=== PATIENT | male | born 1980 | race Caucasian/White ===

== ENCOUNTER 2017-05-21 17:37 | Inpatient (IN) | payer MEDICARE, OTHER ==
[~2017-05-21] VITALS: Ht 177.8 cm; Wt 90.0 kg
[~2017-05-21 17:37] MED LIST: ARIP10IN IM; Benztropine PO; CHOL1000 PO; CLON1 PO; LAMO25 PO
[2017-05-21 18:09] VITALS: BP 137/91; PULSE 106; RESP 17; TEMP 98.2; O2SAT 97
--- NOTE | 2017-05-21 18:45 | PD ---
HPI Chief Complaint: Medical Clearance Time Seen by Provider: 18:00 Travel History International Travel<30 days: No Contact w/Intl Traveler<30days: No Traveled to known affect area: No History of Present Illness HPI 36-year-old presents for evaluation of EXPARTE. Patient was brought here for evaluation of delusions and possible psychosis. Patient himself denies any of this. Patient tells me that he told the place where he states that he wanted to go to walk to work is from. Per patient he is from [place] different [place] he [place] not want to get there. Per patient he is not suicidal or homicidal. Per patient is compliant with his medication and takes Lamictal and "Jori injection". Per patient he got his shot yesterday. Per patient he has no other complaints. He denies being psychotic and denies any delusions or hallucinations. No urinary or bowel movement issues. Has no allergies to medications. No chest pain or shortness of breath. No medical issues per patient. Patient denies any suicidal homicidal ideation. No other medical issues. Patient does appear to be somewhat guarded. Per EXPARTE he is acutely psychotic and delusional. PFSH Past Medical History Anxiety: Yes Depression: Yes Cancer: No Cardiovascular Problems: No Endocrine: No Genitourinary: No Headaches: No Immune Disorder: No Musculoskeletal: No Neurologic: No Psychiatric: Yes (Hx of treatment for Schizoaffective Disorder) Reproductive: No Respiratory: No Social History Alcohol Use: Yes Tobacco Use: No Substance Use: No (Denies but was positive for cannoboids) Allergies-Medications (Allergen,Severity, Reaction): Coded Allergies: No Known Allergies (Unverified , 02/10/17) Reported Meds & Prescriptions Reported Meds & Active Scripts Active Abilify Maintena Dual Chamber Inj (Aripiprazole) 400 Mg Inj 400 Mg IM Q28D This dose of Abilify Maintena is due on 03/25/2017. Gnp Vitamin D3 Extra Stre (Cholecalciferol) 1,000 Unit Tab 1,000 Units PO DAILY 15 Days [Benztropine] 1 MG Tab 1 Mg PO BID 15 Days Lamictal (Lamotrigine) 25 Mg Tab 50 Mg PO BID 15 Days Klonopin (Clonazepam) 1 Mg Tab 0.5 Mg PO BID 15 Days Review of Systems Except as stated in HPI: all other systems reviewed are Neg Physical Exam Narrative GENERAL: SKIN: Warm and dry. HEAD: Atraumatic. Normocephalic. EYES: Pupils equal and round. No scleral icterus. No injection or drainage. ENT: No nasal bleeding or discharge. Mucous membranes pink and moist. NECK: Trachea midline. No JVD. CARDIOVASCULAR: Regular rate and rhythm. RESPIRATORY: No accessory muscle use. Clear to auscultation. Breath sounds equal bilaterally. GASTROINTESTINAL: Abdomen soft, non-tender, nondistended. Hepatic and splenic margins not palpable. MUSCULOSKELETAL: Extremities without clubbing, cyanosis, or edema. No obvious deformities. NEUROLOGICAL: Awake and alert. No obvious cranial nerve deficits. Motor grossly within normal limits. Five out of 5 muscle strength in the arms and legs. Normal speech. PSYCHIATRIC: Appropriate mood and affect; insight and judgment normal. Data Data Last Documented VS Vital Signs Date Time Temp Pulse Resp B/P (MAP) Pulse Ox O2 Delivery O2 Flow Rate FiO2 05/21/17 18:09 98.2 106 17 137/91 (106) 97 Orders Orders Complete Blood Count With Diff (05/21/17 18:00) Comprehensive Metabolic Panel (05/21/17 18:00) Thyroid Stimulating Hormone (05/21/17 18:00) Psych Screen (05/21/17 18:00) Drug Screen, Random Urine (05/21/17 18:00) Alcohol (Ethanol) (05/21/17 18:00) Salicylates (Aspirin) (05/21/17 18:00) Tylenol (Acetaminophen) (05/21/17 18:00) Lamictal (Lamotrigine) (05/21/17 18:33) [facility] Medical Decision Making Medical Screen Exam Complete: Yes Emergency Medical Condition: Yes Medical Record Reviewed: Yes Differential Diagnosis Depression versus suicidal ideation versus anxiety versus adjustment disorder versus mood disorder versus bipolar disorder versus schizophrenia versus paranoid disorder versus psychosis versus substance abuse versus alcohol abuse versus alcohol induced psychosis versus homicidality addition versus cutting versus personality disorder Narrative Course 36-year-old male that presents to the ED for evaluation of side. Patient relates symptoms consistent with psychiatric illness. No significant medical distress. Labs were drawn. Patient was medically cleared. Okay To be seen by psych. Mental health screening was discussed with the patient. Diagnosis Primary Impression: Schizophrenia, acute Gm Acosta May 21, 2017 18:45
[2017-05-21 19:41] LABS: BASOPHIL # 0.1 TH/MM3 (0-0.2); BASOPHIL % 0.7 % (0.0-2.0); EOSINOPHIL # 0.2 TH/MM3 (0-0.4); EOSINOPHIL % 1.6 % (0.0-4.0); HEMATOCRIT 47.8 % (39.0-51.0); HEMOGLOBIN 16.5 GM/DL (13.0-17.0); LYMPH % 26.1 % (9.0-44.0); LYMPHOCYTE # 2.8 TH/MM3 (1.0-4.8); MEAN CELL VOLUME 85.9 FL (80.0-100.0); MEAN CORPUSCULAR HEMOGLOBIN 29.7 PG (27.0-34.0); MEAN CORPUSCULAR HGB CONC 34.5 % (32.0-36.0); MEAN PLATELET VOLUME 9.1 FL (7.0-11.0); MONOCYTE # 0.6 TH/MM3 (0-0.9); NEUT % 65.6 % (16.0-70.0); PLATELET COUNT 191 TH/MM3 (150-450); RED BLOOD COUNT 5.56 MIL/MM3 (4.50-5.90); RED CELL DISTRIBUTION WIDTH 13.5 % (11.6-17.2); WHITE BLOOD COUNT 10.7 TH/MM3 (4.0-11.0)
[2017-05-21 20:25] LABS: ALBUMIN 4.3 GM/DL (3.4-5.0); AST (GOT) 36 U/L (15-37); BICARBONATE 27.3 MEQ/L (21.0-32.0); BLOOD UREA NITROGEN 6 MG/DL (7-18); CHLORIDE 108 MEQ/L (98-107); CREATININE 1.09 MG/DL (0.60-1.30); GLOMERULAR FILTRATION RATE 77 ML/MIN (>89); GLUCOSE,RANDOM 83 MG/DL (74-106); SODIUM (NA) 142 MEQ/L (136-145)
[2017-05-21 20:36] LABS: ACETAMINOPHEN LESS THAN 2.0 MCG/ML (10.0-30.0); ALKALINE PHOSPHATASE 99 U/L (45-117); ALT (GPT) 51 U/L (12-78); TOTAL BILIRUBIN ADULT 0.4 MG/DL (0.2-1.0); TOTAL PROTEIN 7.2 GM/DL (6.4-8.2)
[2017-05-21 23:49] VITALS: BP 126/57; PULSE 84; RESP 18; TEMP 97.7; O2SAT 96
[2017-05-22 04:34] VITALS: BP 96/51; PULSE 88; RESP 18; TEMP 97.3; O2SAT 96
[2017-05-22 10:25] VITALS: BP 109/58; PULSE 91; RESP 16; TEMP 98.5; O2SAT 96
[2017-05-22] MEDS ORDERED: NICOTINE 21 MG/24 HR PATCH T-DERMAL PRN (12:00)
--- NOTE | 2017-05-22 12:10 | HHI.HP ---
Provisional Diagnosis Admission Date 05/22/2017 [place] I. 1. Paranoid schizophrenia [place] II. Deferred Certification of Person's Competence To Provide Express and Informed Consent I have personally examined Pb Jain , a person being served at [facility] on, May 22, 2017 11:50. Express and informed consent means consent voluntarily given in writing, by a competent person, after sufficient explanation and disclosure of the subject matter involved to enable the person to make a knowing and willful decision without any element of force, fraud, deceit, duress, or other form of constraint or coercion. This person is 18 years of age or older, is not now known to be incompetent to consent to treatment with a guardian advocate, and does not have a health care surrogate or proxy currently making medical treatment decisions. I have found this person to be one of the following: [] Competent to provide express and informed consent, as defined above, for voluntary admission to this facility and is competent to provide express and informed consent for treatment. He/she has the consistent capacity to make well reasoned, willful, and knowing decisions concerning his or her medical or mental health treatment. The person fully and consistently understands the purpose of the admission for examination/placement and is fully capable of personally exercising all rights assured [place] [x] Incompetent to provide express and informed consent to voluntary admission, and this is incompetent to provide express and informed consent to treatment. The person must be transferred to involuntary status and a petition for a guardian advocate filed with the Circuit Court. [] Refusing to provide express and informed consent to voluntary admission but is competent to provide express and informed consent for treatment. The person must be discharged or transferred to involuntary status. Form shall be completed within 24 hours of a person's arrival at the receiving facility and filed in the clinical record of each person: 1. Admitted on a voluntary basis 2. Permitted to provide express and informed consent to his/her own treatment 3. Allowed to transfer from involuntary to voluntary status 4. Prior to permitting a person to consent to his or her own treatment after having been previously found incompetent to consent to treatment. History of Present Illness Capacity: Lacks Capacity Psych Chief Complaint: Schizophrenia HPI Mr. Jain is a 36-year-old male with a history of schizophrenia who presents under an ex parte order initiated by oil field caser Lynda Rey alleging that the patient is threatening to walk to the [facility] on foot with no funds and no housing. Further allegations include that the patient has been making delusional statements such as saying that he is "marked by the devil" and that the patient does not believe that he has a mental illness. Patient is well-known to me from fairly lengthy admission from January of last year to March of this year. The patient had been transferred to [facility] with the plan of [facility], although he was apparently subsequently discharged to a lower level of care. Patient seen and examined. Chart reviewed. Case discussed with nurse. On my examination today, the patient presents as a variable and somewhat unreliable historian. He initially says that he does indeed wish to go to [facility] on foot but can provide no explanation for how he will support himself in the journey or once he gets there. He does say that he has gotten services in [facility] before, but he has made no arrangements for his psychiatric care or other care there presently. He says that he wants to leave the facility in which he was apparently placed by [facility], [facility], because this facility is primarily for people with substance use issues he says and "I am not an addict. " Presently, he denies suicidal or homicidal ideation, but it is not clear that he is reliable to contract for safety. I can elicit no depressive or hypomanic/manic symptoms. No bhavik delusional material but see allegations noted above. Remainder of the psychiatric ROS is negative. No acute physical complaints. Nursing has reached out to patient's sister who verbalizes grave concerns to nursing about patient's plan to go to [facility]. I have myself reached out to patient's outpatient psychiatrist Dr. Peterson who notes that the patient has been becoming increasingly irrational over the last several weeks and that it is impossible to reason with him. He also expresses concern about the patient's case and agrees that inpatient psychiatric admission is the most reasonable step at this point. Past psychiatric history: The patient has a history of schizophrenia. He follows with the FACT team. Most recent psychiatric admission was here in [place]. Denies a history of suicide attempts. Family history: Patient denies any family history of mental illness. Chemical dependency history: Patient does have a history of cannabis use issues but denies any substance use presently. Social history: Patient had been residing at facility as noted above. He is single with no children. He has his GED. He collects $1200 a month in [employer]. He denies any access to guns or firearms. I did reach out to patient's sister, Tammy Juan- [phone] to obtain consent for medications and to discuss the case. She is willing to serve as the patient's health care surrogate for this admission. I also called over to Case Sandoval to confirm patient's medication list: Abilify Aristada 662mg IM last administered yesterday Lamictal 50mg BID Review of Systems ROS Limitations: Poor Historian Except as stated in HPI: all other systems reviewed are Neg Past Family Social History Coded Allergies: No Known Allergies (Unverified , 02/10/17) Past Medical History See electronic medical record Active Scripts Aripiprazole Maintena Dual Chamber Inj (Abilify Maintena Dual Chamber Inj) 400 Mg Inj, 400 MG IM Q28D for Mental Health, #1 SYRINGE 0 Refills This dose of Abilify Maintena is due on 03/25/2017. Prov:Pb Rae MD 03/23/17 Cholecalciferol (Gnp Vitamin D3 Extra Stre) 1,000 Unit Tab, 1000 UNITS PO DAILY for Vitamin D supplement for 15 Days, TAB 1 Refill Prov:Pb Rae MD 03/23/17 [Benztropine] 1 MG TAB No Conflict Check, 1 MG PO BID for Side effect management for 15 Days, 1 Refill Prov:Pb Rae MD 03/23/17 Lamotrigine (Lamictal) 25 Mg Tab, 50 MG PO BID for Mental Health for 15 Days, # 60 TAB 1 Refill Prov:Pb Rae MD 03/23/17 Clonazepam (Klonopin) 1 Mg Tab, 0.5 MG PO BID for Mental Health for 15 Days, # 15 TAB 1 Refill Prov:Pb Rae MD 03/23/17 Patient's Strengths (min. 2) In a monitored setting. Verbally fluent. Physical Exam Physical exam completed by ED provider. On my examination today, the patient appears to be in no acute physical distress. No motor abnormalities noted. No visible rash. Labs and vitals reviewed Vital Signs Vital Signs Date Time Temp Pulse Resp B/P (MAP) Pulse Ox O2 Delivery O2 Flow Rate FiO2 05/22/17 10:25 98.5 91 16 109/58 (75) 96 Room Air Lab Results Test 05/21/17 19:30 05/21/17 21:00 White Blood Count 10.7 TH/MM3 Red Blood Count 5.56 MIL/MM3 Hemoglobin 16.5 GM/DL Hematocrit 47.8 % Mean Corpuscular Volume 85.9 FL Mean Corpuscular Hemoglobin 29.7 PG Mean Corpuscular Hemoglobin Concent 34.5 % Red Cell Distribution Width 13.5 % Platelet Count 191 TH/MM3 Mean Platelet Volume 9.1 FL Neutrophils (%) (Auto) 65.6 % Lymphocytes (%) (Auto) 26.1 % Monocytes (%) (Auto) 6.0 % Eosinophils (%) (Auto) 1.6 % Basophils (%) (Auto) 0.7 % Neutrophils # (Auto) 7.0 TH/MM3 Lymphocytes # (Auto) 2.8 TH/MM3 Monocytes # (Auto) 0.6 TH/MM3 Eosinophils # (Auto) 0.2 TH/MM3 Basophils # (Auto) 0.1 TH/MM3 CBC Comment DIFF FINAL Differential Comment Blood Urea Nitrogen 6 MG/DL Creatinine 1.09 MG/DL Random Glucose 83 MG/DL Total Protein 7.2 GM/DL Albumin 4.3 GM/DL Calcium Level 9.0 MG/DL Alkaline Phosphatase 99 U/L Aspartate Amino Transf (AST/SGOT) 36 U/L Alanine Aminotransferase (ALT/SGPT) 51 U/L Total Bilirubin 0.4 MG/DL Sodium Level 142 MEQ/L Potassium Level 4.9 MEQ/L Chloride Level 108 MEQ/L Carbon Dioxide Level 27.3 MEQ/L Anion Gap 7 MEQ/L Estimat Glomerular Filtration Rate 77 ML/MIN Thyroid Stimulating Hormone 3rd Gen 1.150 uIU/ML Salicylates Level 4.1 MG/DL Acetaminophen Level LESS THAN 2.0 MCG/ML Ethyl Alcohol Level LESS THAN 3 MG/DL Urine Opiates Screen NEG Urine Barbiturates Screen NEG Urine Amphetamines Screen NEG Urine Benzodiazepines Screen NEG Urine Cocaine Screen NEG Urine Cannabinoids Screen NEG Lamictal level is presently pending Mental Status Examination Appearance: Disheveled Consciousness: Alert Orientation: x4 Motor Activity: Other (No motor abnormalities noted) Speech: Unremarkable Language: Other (Rambling) Fund of Knowledge: Adequate Attention and Concentration: Easily Distracted Memory: Unremarkable Mood: Other (Denies issues with mood) Affect: Blunt Thought Process & Associations: Circumstantial (At times tangential) Thought Content: Bizarre thinking Hallucination Type: None Delusion Type: None Suicidal Ideation: No (Unreliable to contract for safety) Suicidal Plan: No Suicidal Intention: No Homicidal Ideation: No Homicidal Plan: No Homicidal Intention: No Insight: Poor Judgment: Poor Assessment & Plan Problem List: (1) Acute exacerbation of chronic paranoid schizophrenia ICD Codes: F20.0 - Paranoid schizophrenia Assessment & Plan 36-year-old male with psychiatric history as detailed above who presents under ex part order initiated by oil field caser from the FACT team. Collateral from sister and outpatient psychiatrist suggests that the patient is struggling in less restrictive setting, and it seems most prudent at this juncture to rehospitalize the patient for further medication management and stabilization; I will admit the patient to the inpatient unit now for this purpose. Admitted inpatient. Involuntary status. I have completed first opinion. Consult for second opinion. Request healthcare surrogate and guardian advocate. Titrate Lamictal to 50 mg in the morning and 75 mg at bedtime for management of psychiatric symptoms. Patient already has long-acting injectable Abilify on board. Ativan as needed for anxiety, Cogentin as needed for EPS, Benadryl as needed for sleep. Vitals every shift. Counselor to see. Disposition planning. Estimated length of stay: At least 1 week. Discharge Planning To be determined pending stabilization Request HC Surrog/Guard Advoc?: Yes Pb Rae MD May 22, 2017 12:10
[2017-05-22] MEDS ORDERED: diphenhydrAMINE HCL 50 MG CAP PO PRN ×2 (12:15→13:00)
[2017-05-22] MEDS ORDERED: BENZTROPINE MESYLATE 2 MG/2 ML VIAL IM PRN (13:00)
[2017-05-22] MEDS ORDERED: REMOVE OLD PATCH T-DERMAL PRN (13:00)
[2017-05-22] MEDS ORDERED: MAGNESIUM HYDROXIDE SUSP 30 ML CUP PO PRN (13:00)
[2017-05-22] MEDS ORDERED: BENZTROPINE MESYLATE 1 MG TAB PO PRN (13:00)
[2017-05-22] MEDS ORDERED: LORazepam 2 MG/ML VIAL IM PRN (13:00)
[2017-05-22] MEDS ORDERED: ALUMINUM/MAGNESIUM/SIMETH 30 ML CUP PO PRN (13:00)
[2017-05-22] MEDS ORDERED: LORazepam 1 MG TAB PO PRN (13:00)
[2017-05-22] MEDS ORDERED: ACETAMINOPHEN 325 MG TAB PO PRN (13:00)
--- NOTE | 2017-05-22 14:16 | PD.PSY.CON ---
Provisional Diagnosis Admission Date May 22, 2017 at 11:49 [place] I. 1. Paranoid schizophrenia [place] II. Deferred History of Present Illness Service Psychiatry Consult Requested By Kyra Reason for Consult Second opinion petition supporting [facility] Primary Care Physician No Primary Care Physician HPI Mr. Jain is a 36-year-old male with a history of schizophrenia who presents under an ex parte order initiated by mental health case manager Lynda Rey alleging that the patient is threatening to walk to the [facility] on foot with no funds and no housing. Further allegations include that the patient has been making delusional statements such as saying that he is "marked by the devil" and that the patient does not believe that he has a mental illness. Patient is well-known to me from fairly lengthy admission from January of last year to March of this year. The patient had been transferred to [facility] with the plan of sending him to the [facility], although he was apparently subsequently discharged to a lower level of care. Patient seen and examined. Chart reviewed. Case discussed with nurse. On my examination today, the patient presents as a variable and somewhat unreliable historian. He initially says that he does indeed wish to go to [facility] on foot but can provide no explanation for how he will support himself in the journey or once he gets there. He does say that he has gotten services in [facility] before, but he has made no arrangements for his psychiatric care or other care there presently. He says that he wants to leave the facility in which he was apparently placed by [facility], [facility], because this facility is primarily for people with substance use issues he says and "I am not an addict. " Presently, he denies suicidal or homicidal ideation, but it is not clear that he is reliable to contract for safety. I can elicit no depressive or hypomanic/manic symptoms. No bhavik delusional material but see allegations noted above. Remainder of the psychiatric ROS is negative. No acute physical complaints. Nursing has reached out to patient's sister who verbalizes grave concerns to nursing about patient's plan to go to [facility]. I have myself reached out to patient's outpatient psychiatrist Dr. Peterson who notes that the patient has been becoming increasingly irrational over the last several weeks and that it is impossible to reason with him. He also expresses concern about the patient's case and agrees that inpatient psychiatric admission is the most reasonable step at this point. Past psychiatric history: The patient has a history of schizophrenia. He follows with the FACT team. Most recent psychiatric admission was here in [place]. Denies a history of suicide attempts. Family history: Patient denies any family history of mental illness. Chemical dependency history: Patient does have a history of cannabis use issues but denies any substance use presently. Social history: Patient had been residing at facility as noted above. He is single with no children. He has his GED. He collects $1200 a month in [employer]. He denies any access to guns or firearms. I did reach out to patient's sister, Tammy Juan- [phone] to obtain consent for medications and to discuss the case. She is willing to serve as the patient's health care surrogate for this admission. I also called over to Case Sandoval to confirm patient's medication list: Abilify Aristada 662mg IM last administered yesterday Lamictal 50mg BID 05/22/17 Above note dictated by Dr. Rae reviewed and agreed with. Patient medically Dr. Rae service. Dr. Ta is a first opinion petition supporting [facility]. Patient seen by me in his room with nurse Pj, patient continues somewhat delusional somewhat disorganized, little story when attempting to switch fact team locations. I agree with Dr. Rae patient meets criteria for involuntary psychiatric hospitalization thus I'll cosign second opinion petition supporting [facility] act Past Family Social History Coded Allergies: No Known Allergies (Unverified , 02/10/17) Active Scripts Aripiprazole Maintena Dual Chamber Inj (Abilify Maintena Dual Chamber Inj) 400 Mg Inj, 400 MG IM Q28D for Mental Health, #1 SYRINGE 0 Refills This dose of Abilify Maintena is due on 03/25/2017. Prov:Pb Rae MD 03/23/17 Cholecalciferol (Gnp Vitamin D3 Extra Stre) 1,000 Unit Tab, 1000 UNITS PO DAILY for Vitamin D supplement for 15 Days, TAB 1 Refill Prov:Pb Rae MD 03/23/17 [Benztropine] 1 MG TAB No Conflict Check, 1 MG PO BID for Side effect management for 15 Days, 1 Refill Prov:Pb Rae MD 03/23/17 Lamotrigine (Lamictal) 25 Mg Tab, 50 MG PO BID for Mental Health for 15 Days, # 60 TAB 1 Refill Prov:Pb Rae MD 03/23/17 Clonazepam (Klonopin) 1 Mg Tab, 0.5 MG PO BID for Mental Health for 15 Days, # 15 TAB 1 Refill Prov:Pb Rae MD 03/23/17 Current Medications Medications (Trade) Dose Ordered Sig/Domingo Route Start Time Stop Time Status Last Admin (Tylenol) 650 mg Q4H PRN PO 05/22/17 13:00 (Milk Of Magnesia Liq) 30 ml DAILY PRN PO 05/22/17 13:00 (Mag-Al Plus Susp Liq) 30 ml Q6H PRN PO 05/22/17 13:00 (Habitrol 21 Mg Patch.24 Hr) 1 patch DAILY PRN T-DERMAL 05/22/17 12:00 (LaMICtal) 50 mg DAILY PO 05/23/17 09:00 (LaMICtal) 75 mg HS PO 05/22/17 21:00 (Ativan) 1 mg Q6H PRN PO 05/22/17 13:00 (Ativan Inj) 1 mg Q6H PRN IM 05/22/17 13:00 (Cogentin) 1 mg Q12HR PRN PO 05/22/17 13:00 (Cogentin Inj) 1 mg Q12HR PRN IM 05/22/17 13:00 (Benadryl) 50 mg HS PRN PO 05/22/17 12:15 Miscellaneous Information 1 DAILY PRN T-DERMAL 05/22/17 13:00 Patient's Strengths (min. 2) In a monitored setting. Verbally fluent. Physical Exam Vital Signs Vital Signs Date Time Temp Pulse Resp B/P (MAP) Pulse Ox O2 Delivery O2 Flow Rate FiO2 05/22/17 10:25 98.5 91 16 109/58 (75) 96 Room Air Lab Results Test 05/21/17 19:30 05/21/17 21:00 White Blood Count 10.7 TH/MM3 Red Blood Count 5.56 MIL/MM3 Hemoglobin 16.5 GM/DL Hematocrit 47.8 % Mean Corpuscular Volume 85.9 FL Mean Corpuscular Hemoglobin 29.7 PG Mean Corpuscular Hemoglobin Concent 34.5 % Red Cell Distribution Width 13.5 % Platelet Count 191 TH/MM3 Mean Platelet Volume 9.1 FL Neutrophils (%) (Auto) 65.6 % Lymphocytes (%) (Auto) 26.1 % Monocytes (%) (Auto) 6.0 % Eosinophils (%) (Auto) 1.6 % Basophils (%) (Auto) 0.7 % Neutrophils # (Auto) 7.0 TH/MM3 Lymphocytes # (Auto) 2.8 TH/MM3 Monocytes # (Auto) 0.6 TH/MM3 Eosinophils # (Auto) 0.2 TH/MM3 Basophils # (Auto) 0.1 TH/MM3 CBC Comment DIFF FINAL Differential Comment Blood Urea Nitrogen 6 MG/DL Creatinine 1.09 MG/DL Random Glucose 83 MG/DL Total Protein 7.2 GM/DL Albumin 4.3 GM/DL Calcium Level 9.0 MG/DL Alkaline Phosphatase 99 U/L Aspartate Amino Transf (AST/SGOT) 36 U/L Alanine Aminotransferase (ALT/SGPT) 51 U/L Total Bilirubin 0.4 MG/DL Sodium Level 142 MEQ/L Potassium Level 4.9 MEQ/L Chloride Level 108 MEQ/L Carbon Dioxide Level 27.3 MEQ/L Anion Gap 7 MEQ/L Estimat Glomerular Filtration Rate 77 ML/MIN Thyroid Stimulating Hormone 3rd Gen 1.150 uIU/ML Salicylates Level 4.1 MG/DL Acetaminophen Level LESS THAN 2.0 MCG/ML Ethyl Alcohol Level LESS THAN 3 MG/DL Urine Opiates Screen NEG Urine Barbiturates Screen NEG Urine Amphetamines Screen NEG Urine Benzodiazepines Screen NEG Urine Cocaine Screen NEG Urine Cannabinoids Screen NEG Mental Status Examination Appearance: Disheveled Consciousness: Alert Orientation: x4 Motor Activity: Other (No motor abnormalities noted) Speech: Unremarkable Language: Other (Rambling) Fund of Knowledge: Adequate Attention and Concentration: Easily Distracted Memory: Unremarkable Mood: Other (Denies issues with mood) Affect: Blunt Thought Process & Associations: Circumstantial (At times tangential) Thought Content: Bizarre thinking Hallucination Type: None Delusion Type: None Suicidal Ideation: No (Unreliable to contract for safety) Suicidal Plan: No Suicidal Intention: No Homicidal Ideation: No Homicidal Plan: No Homicidal Intention: No Insight: Poor Judgment: Poor Assessment & Plan Problem List: (1) Acute exacerbation of chronic paranoid schizophrenia ICD Codes: F20.0 - Paranoid schizophrenia Assessment & Plan Estimated LOS: days Request HC Surrog/Guard Advoc?: Yes Janusz Snyder MD May 22, 2017 14:16
[2017-05-22 14:53] VITALS: BP 139/69; PULSE 92; RESP 20; TEMP 97.9; O2SAT 96
[2017-05-22] MEDS: lamoTRIgine 25 MG TAB PO SCH (21:25)
[2017-05-23 05:57] VITALS: BP 105/55; PULSE 80; RESP 15; TEMP 97.9; O2SAT 93
[2017-05-23] MEDS: lamoTRIgine 25 MG TAB PO SCH ×2 (09:16→21:42)
[2017-05-23 09:21] LABS: BICARBONATE 24.8 MEQ/L (21.0-32.0); BLOOD UREA NITROGEN 14 MG/DL (7-18); CALCIUM 8.7 MG/DL (8.5-10.1); CHLORIDE 110 MEQ/L (98-107); CREATININE 0.95 MG/DL (0.60-1.30); GLOMERULAR FILTRATION RATE 90 ML/MIN (>89); GLUCOSE,RANDOM 75 MG/DL (74-106); SODIUM (NA) 142 MEQ/L (136-145)
[2017-05-23 09:22] LABS: CHOLESTEROL 193 MG/DL (120-200)
[2017-05-23 09:24] LABS: CHOLESTEROL/ HDL RATIO 3.49 RATIO; HDL CHOLESTEROL 55.2 MG/DL (40.0-60.0); LDL CHOLESTEROL 120 MG/DL (0-99); TRIGLYCERIDES 90 MG/DL (42-150)
--- NOTE | 2017-05-23 10:38 | HHI.PYPN ---
Subjective Chief Complaint: Schizophrenia Remarks Reviewed electronic medical record and discussed case with staff. Follow-up was performed in patient's room with nurse present. Patient was found awake lying in his bed. He is alert and oriented to self and place at least. He reports that he has slept well, and has a good appetite. He states "I want to go back to [facility] to live with my sister". He states that he plans on walking there and has made a similar walk before without problem. He does relay that he is not happy with his present living arrangements at [facility] and states that the staff is not trained appropriately. He denies having mental illness although he does admit to receiving disability for mental illness. Mental Status Examination Appearance: Disheveled Consciousness: Alert Orientation: x4 Motor Activity: Other (No motor abnormalities noted) Speech: Unremarkable Language: Other (Rambling) Fund of Knowledge: Adequate Attention and Concentration: Easily Distracted Memory: Unremarkable Mood: Other (Denies issues with mood) Affect: Blunt Thought Process & Associations: Circumstantial (At times tangential) Thought Content: Bizarre thinking Hallucination Type: None Delusion Type: None Suicidal Ideation: No (Unreliable to contract for safety) Suicidal Plan: No Suicidal Intention: No Homicidal Ideation: No Homicidal Plan: No Homicidal Intention: No Insight: Poor Judgment: Poor Results Labs Test 05/23/17 07:43 Blood Urea Nitrogen 14 MG/DL Creatinine 0.95 MG/DL Random Glucose 75 MG/DL Calcium Level 8.7 MG/DL Sodium Level 142 MEQ/L Potassium Level 4.6 MEQ/L Chloride Level 110 MEQ/L Carbon Dioxide Level 24.8 MEQ/L Anion Gap 7 MEQ/L Estimat Glomerular Filtration Rate 90 ML/MIN Triglycerides Level 90 MG/DL Cholesterol Level 193 MG/DL LDL Cholesterol 120 MG/DL HDL Cholesterol 55.2 MG/DL Cholesterol/HDL Ratio 3.49 RATIO Vitals/IOs Vital Signs Date Time Temp Pulse Resp B/P (MAP) Pulse Ox O2 Delivery O2 Flow Rate FiO2 05/23/17 05:57 97.9 80 15 105/55 (72) 93 05/22/17 10:25 Room Air Assessment & Plan Problem List: (1) Acute exacerbation of chronic paranoid schizophrenia ICD Codes: F20.0 - Paranoid schizophrenia Assessment & Plan Estimated LOS: Patient remains fixated on the idea of walking to [facility]. His speech remains rapid and somewhat pressured. He will continue to be treated in a discharge plan will be begun. Justification for Cont. Inpt. Moving this patient to a lower level of care would likely result in a decompensation. He lacks capacity for self-care at this point. Request HC Surrog/Guard Advoc?: Yes Marcelina Ovalles May 23, 2017 10:38
[2017-05-23 13:17] LABS: HEMOGLOBIN A1C 4.5 % (4.3-6.0)
[2017-05-23 17:40] VITALS: BP 116/70; PULSE 104; RESP 18; TEMP 97.7
[2017-05-23 18:46] VITALS: PULSE 84; O2SAT 96
[2017-05-24 05:45] VITALS: BP 96/53; PULSE 80; RESP 16; TEMP 97.1; O2SAT 94
[2017-05-24] MEDS: lamoTRIgine 25 MG TAB PO SCH ×2 (09:01→21:14)
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
[2017-05-24 18:24] VITALS: BP 106/58; PULSE 81; RESP 18; TEMP 98.5; O2SAT 100
[2017-05-25 06:26] VITALS: BP 108/62; PULSE 82; RESP 18; TEMP 98; O2SAT 98
--- NOTE | 2017-05-25 08:49 | HHI.PYPN ---
Subjective Chief Complaint: Schizophrenia Remarks Patient seen and examined with nurse. Chart reviewed. I note the patient was verbalizing some delusional material to nurse practitioner yesterday. Case discussed with nursing staff who notes the patient is pacing the unit and becomes easily agitated in conversation. On my examination today, the patient' s speech is somewhat rambling. He is discharge focused and appears to be intent on going to [facility] because he likes the FACT team better there. When we discuss the need for further discharge planning as a prelude to any discharge plan, patient becomes irritable, although he quickly covers this. He denies SI, denies CAH. Denies side effects from medications. Complains of constipation. Says that he has not had a bowel movement or passed gas for several days. He does not appear obstructed, but out of an abundance of caution I will check a KUB before ordering any further laxatives or stool softeners. Review of Systems ROS Limitations: Poor Historian Except as stated in HPI: all other systems reviewed are Neg Mental Status Examination Appearance: Disheveled Consciousness: Alert Orientation: x4 Motor Activity: Other (No abnormal motor movements noted) Speech: Unremarkable Language: Other (Rambling) Fund of Knowledge: Adequate Attention and Concentration: Easily Distracted Memory: Unremarkable Mood: Irritable Affect: Blunt Thought Process & Associations: Circumstantial (At times tangential) Thought Content: Bizarre thinking Hallucination Type: None Delusion Type: None Suicidal Ideation: No (Unreliable to contract for safety) Suicidal Plan: No Suicidal Intention: No Homicidal Ideation: No Homicidal Plan: No Homicidal Intention: No Insight: Poor Judgment: Poor Mental Status Exam Remarks No visible rash Results Labs Labs reviewed. No new labs. Lamictal level pending. Vitals/IOs Vital Signs Date Time Temp Pulse Resp B/P (MAP) Pulse Ox O2 Delivery O2 Flow Rate FiO2 05/25/17 06:26 98.0 82 18 108/62 (77) 98 05/22/17 10:25 Room Air Intake and Output 05/25/17 05/25/17 05/26/17 08:00 16:00 00:00 Intake Total 240 ml Balance 240 ml Assessment & Plan Problem List: (1) Acute exacerbation of chronic paranoid schizophrenia ICD Codes: F20.0 - Paranoid schizophrenia Assessment & Plan Continue Lamictal as ordered. Patient received Abilify long-acting injection shortly prior to admission. To consider additional antipsychotic. Follow-up KUB and, if negative, add bowel regimen. Continue to monitor on the inpatient unit. Continue other medications and care as ordered. Justification for Cont. Inpt. Risk for decompensation in less restrictive environment. Discharge Planning Pending psychiatric stabilization. Request HC Surrog/Guard Advoc?: Yes Pb Rae MD May 25, 2017 08:49
[2017-05-25] MEDS: lamoTRIgine 25 MG TAB PO SCH ×2 (09:38→22:06)
--- NOTE | 2017-05-25 12:26 | RADRPT ---
EXAM DATE/TIME: 05/25/2017 12:16 [place] COMPARISON: No previous studies available for comparison. INDICATIONS : Abdominal discomfort. Possible obstruction. MEDICAL HISTORY : None. SURGICAL HISTORY : None. ENCOUNTER: Initial ACUITY: 4 - 6 days PAIN SCORE: 3/10 LOCATION: Abdomen. FINDINGS: Supine view of the abdomen was performed. The abdominal bowel gas pattern is normal. No abnormal ma sses, calcifications, or organomegaly is seen. The osseous structures are unremarkable. CONCLUSION: No acute disease. Janusz Calloway MD on May 25, 2017 at 12:24 Board Certified Radiologist. This report was verified electronically.
[2017-05-25 16:48] VITALS: BP 111/59; PULSE 88; RESP 18; TEMP 98.6; O2SAT 98
[2017-05-25] MEDS: DOCUSATE SODIUM 100 MG CAP PO SCH (22:06)
[2017-05-26 06:00] VITALS: BP 88/53; PULSE 72; RESP 17; TEMP 97.7; O2SAT 97
[2017-05-26 07:41] VITALS: BP 95/48; PULSE 76
[2017-05-26 07:42] VITALS: BP 99/59; PULSE 79
[2017-05-26] MEDS: DOCUSATE SODIUM 100 MG CAP PO SCH ×2 (08:59→20:21)
[2017-05-26] MEDS: lamoTRIgine 25 MG TAB PO SCH ×2 (08:59→20:20)
--- NOTE | 2017-05-26 09:59 | HHI.PYPN ---
Subjective Chief Complaint: Schizophrenia Remarks Patient seen and examined with nurse. Chart reviewed. Case discussed with nursing staff reports the patient has been calm with a blunted affect. He has not verbalized any psychotic material to nursing staff. Case discussed with counselor who reports that patient is not able to return to current [facility] and will require new placement. On my exam today, patient denies SI/HI/AVH. We discuss need for new placement. Patient expresses some preference for living homeless but is willing to pursue placement. No side effects from medications. No physical complaints. Review of Systems ROS Limitations: Poor Historian Except as stated in HPI: all other systems reviewed are Neg Mental Status Examination Appearance: Disheveled Consciousness: Alert Orientation: x4 Motor Activity: Other (No motor abnormalities noted.) Speech: Unremarkable Language: Adequate Fund of Knowledge: Adequate Attention and Concentration: Easily Distracted Memory: Unremarkable Mood: Other (calm) Affect: Blunt Thought Process & Associations: Intact Thought Content: Appropriate Hallucination Type: None Delusion Type: None Suicidal Ideation: No Suicidal Plan: No Suicidal Intention: No Homicidal Ideation: No Homicidal Plan: No Homicidal Intention: No Insight: Poor Judgment: Poor Results Labs Labs reviewed. LCT level within reference range. Vitals/IOs Vital Signs Date Time Temp Pulse Resp B/P (MAP) Pulse Ox O2 Delivery O2 Flow Rate FiO2 05/26/17 07:42 79 99/59 (72) 05/26/17 06:00 97.7 17 97 05/22/17 10:25 Room Air Intake and Output 05/26/17 05/26/17 05/27/17 08:00 16:00 00:00 Intake Total 600 ml Balance 600 ml Assessment & Plan Problem List: (1) Acute exacerbation of chronic paranoid schizophrenia ICD Codes: F20.0 - Paranoid schizophrenia Assessment & Plan Continue Lamictal as ordered. Patient had received Abilify Aristada shortly before admission. Continue to monitor on inpatient unit. Continue other medications and care as ordered. Justification for Cont. Inpt. Risk for decompensation in less restrictive environment Discharge Planning New placement Request HC Surrog/Guard Advoc?: Yes Pb Rae MD May 26, 2017 09:59
[2017-05-26 18:03] VITALS: BP_SYST 147; BP_SYST 90; BP_DIAS 48; BP_DIAS 68; PULSE 89; PULSE 92; RESP 17; TEMP 97.7; TEMP 98.4; O2SAT 97; O2SAT 98
[2017-05-27 05:56] VITALS: BP 91/53; PULSE 76; RESP 20; TEMP 98.1
[2017-05-27] MEDS: lamoTRIgine 25 MG TAB PO SCH ×2 (09:17→21:08)
[2017-05-27] MEDS: DOCUSATE SODIUM 100 MG CAP PO SCH ×2 (09:17→21:08)
--- NOTE | 2017-05-27 10:34 | PD.TTN ---
Patient Problems 1. Discharge planning 2. Medication compliance 3. Knowledge deficit 4. Lack of coping skills Progress Toward Goals Provider Present: Dr. Hayder Rae Provider Input: 05/26/17 - Patient remains without behavioral disturbance and will require new placement as he is unable to return to [facility]. Patient would like to be placed in [facility], however, resources in that [facility] are scarce. Psychiatric Counselors Present: SANAM Driver Psych Therapist Input: 05/26/17 - Counselor will contact patient's FACT Team medicare sales representative, Aroldo Tristan, to plan an appropriate discharge. Group Spec/RT/OT/QURESHI Present: CHAN Dennis Group Spec/RT/OT/QURESHI Input: 05/26/17 - Patient attends select groups. Discharge Plan [facility] 05/26/17 - Patient is on the FACT Team and will follow-up with [facility]. Documentation Scribe: SANAM Driver Date Resolved: May 26, 2017 Anali Silverio May 27, 2017 10:34
--- NOTE | 2017-05-27 11:43 | HHI.PYPN ---
Subjective Chief Complaint: Schizophrenia Remarks Reviewed electronic medical record and discussed case with staff. Follow-up was performed in patient's room with nurse present. Patient found sitting on his bed reading his Bible. He is awake, alert, and oriented 4. His speech is clear, logical, and organized. Patient reports that he has no suicidal ideation , homicidal ideation or AVH without prompting. Patient is aware that he cannot return to his previous facility and placement is being sought. He does not seem internally stimulated. His mood is good his affect is euthymic. Mental Status Examination Appearance: Disheveled Consciousness: Alert Orientation: x4 Motor Activity: Other (No motor abnormalities noted.) Speech: Unremarkable Language: Adequate Fund of Knowledge: Adequate Attention and Concentration: Easily Distracted Memory: Unremarkable Mood: Other (calm) Affect: Blunt Thought Process & Associations: Intact Thought Content: Appropriate Hallucination Type: None Delusion Type: None Suicidal Ideation: No Suicidal Plan: No Suicidal Intention: No Homicidal Ideation: No Homicidal Plan: No Homicidal Intention: No Insight: Poor Judgment: Poor Results Vitals/IOs Vital Signs Date Time Temp Pulse Resp B/P (MAP) Pulse Ox O2 Delivery O2 Flow Rate FiO2 05/27/17 05:56 98.1 76 20 91/53 (66) 05/26/17 18:03 97 Assessment & Plan Problem List: (1) Acute exacerbation of chronic paranoid schizophrenia ICD Codes: F20.0 - Paranoid schizophrenia Assessment & Plan Estimated LOS: A safe placement is being sought. Patient appears to be doing better. Discharge planning in progress. Days Justification for Cont. Inpt. Moving this patient to a lower level of care would likely result in decompensation on his part. Safe placement being sought. Request HC Surrog/Guard Advoc?: Yes Marcelina Ovalles May 27, 2017 11:43
[2017-05-27 17:07] VITALS: BP 112/65; PULSE 84; RESP 16; TEMP 97.9; O2SAT 99
[2017-05-28 05:40] VITALS: BP 102/59; PULSE 76; RESP 18; TEMP 97.9; O2SAT 98
--- NOTE | 2017-05-28 08:55 | HHI.PYPN ---
Subjective Chief Complaint: Schizophrenia Remarks Patient seen and examined with nurse. Chart reviewed. Case discussed with nursing staff who reports that the patient has been making calls trying to arrange for entry into the FACT team in [facility]. He has been no behavioral problem on the unit. Case discussed with counselor who reports that FACT team was requesting transfer to C[facility] at [facility] with plan to place patient on [facility] wait list there. On my exam, patient is relevant and appropriate in conversation. There is no intrusion of delusional material in conversation today. He denies SI/HI. Denies AVH. No side effects from medications. Complains of some ongoing constipation but has not yet made use of Dulcolax p.r.n.; I have instructed nurse to provide him with a dose. No other physical complaints. Review of Systems Except as stated in HPI: all other systems reviewed are Neg Mental Status Examination Appearance: Other (fair grooming) Consciousness: Alert Orientation: x4 Motor Activity: Other (No motor abnormalities noted.) Speech: Unremarkable Language: Adequate Fund of Knowledge: Adequate Attention and Concentration: Easily Distracted Memory: Unremarkable Mood: Appropriate Affect: Blunt Thought Process & Associations: Intact Thought Content: Appropriate Hallucination Type: None Delusion Type: None Suicidal Ideation: No Suicidal Plan: No Suicidal Intention: No Homicidal Ideation: No Homicidal Plan: No Homicidal Intention: No Insight: Poor Judgment: Poor Mental Status Exam Remarks No visible rash Results Labs Labs reviewed. Vitals/IOs Vital Signs Date Time Temp Pulse Resp B/P (MAP) Pulse Ox O2 Delivery O2 Flow Rate FiO2 05/28/17 05:40 97.9 76 18 102/59 (73) 98 Assessment & Plan Problem List: (1) Acute exacerbation of chronic paranoid schizophrenia ICD Codes: F20.0 - Paranoid schizophrenia Assessment & Plan Continue Lamictal as ordered. Patient has already received long-acting injectable Abilify. I do not feel that patient presently meets criteria for state hospitalization but would benefit from new placement. I have instructed counselor to continue efforts towards arranging for new placement. Continue other medications and care as ordered. Patient's case was presented to the [place] [facility] and placed in continuance for 2 weeks with sister to serve as health care surrogate. Justification for Cont. Inpt. Risk for decompensation in less restrictive environment. Discharge Planning New placement. Request HC Surrog/Guard Advoc?: Yes Pb Rae MD May 28, 2017 08:55
[2017-05-28] MEDS: DOCUSATE SODIUM 100 MG CAP PO SCH ×2 (10:02→20:17)
[2017-05-28] MEDS: lamoTRIgine 25 MG TAB PO SCH ×2 (10:07→20:17)
[2017-05-28 17:16] VITALS: BP 119/58; PULSE 95; RESP 18; TEMP 97.9; O2SAT 98
[2017-05-28] MEDS: BISACODYL EC 5 MG TABEC PO PRN (20:19)
[2017-05-29 05:35] VITALS: BP 99/60; PULSE 78; RESP 1; TEMP 97.7; O2SAT 98
[2017-05-29] MEDS: DOCUSATE SODIUM 100 MG CAP PO SCH ×2 (08:58→21:06)
[2017-05-29] MEDS: lamoTRIgine 25 MG TAB PO SCH ×2 (08:59→21:05)
--- NOTE | 2017-05-29 11:14 | HHI.PYPN ---
Subjective Chief Complaint: Schizophrenia Remarks Reviewed electronic medical record discussed case with staff. Follow-up was performed in patient's room. Patient found lying on bed reading his Bible, awake, alert, and oriented 4. Patient's counselor, Bita, advises that a enrollment representative from [facility] will be coming to meet with patient today. Patient reports feeling excited about this. His mood is good and his affect is euthymic. His speech is clear, logical, and organized. There is no indication of internal stimulation and no delusional material can be elicited. Mental Status Examination Appearance: Other (fair grooming) Consciousness: Alert Orientation: x4 Motor Activity: Other (No motor abnormalities noted.) Speech: Unremarkable Language: Adequate Fund of Knowledge: Adequate Attention and Concentration: Adequate Memory: Unremarkable Mood: Appropriate Affect: Blunt Thought Process & Associations: Intact Thought Content: Appropriate Hallucination Type: None Delusion Type: None Suicidal Ideation: No Suicidal Plan: No Suicidal Intention: No Homicidal Ideation: No Homicidal Plan: No Homicidal Intention: No Insight: Poor Judgment: Poor Results Vitals/IOs Vital Signs Date Time Temp Pulse Resp B/P (MAP) Pulse Ox O2 Delivery O2 Flow Rate FiO2 05/29/17 05:35 97.7 78 1 99/60 (73) 98 Assessment & Plan Problem List: (1) Acute exacerbation of chronic paranoid schizophrenia ICD Codes: F20.0 - Paranoid schizophrenia Assessment & Plan Estimated LOS: Placement pending. [facility] enrollment representative coming to me with patient today. Anticipate discharge once a safe placement has been identified. Days Justification for Cont. Inpt. Discharge planning is in progress. Review this patient to a lower level of care at this time would likely result in a decompensation. Continue annual with current medical treatment until safe discharge plan identified. Request HC Surrog/Guard Advoc?: Yes Marcelina Ovalles May 29, 2017 11:14
[2017-05-29 17:25] VITALS: BP 141/68; PULSE 104; RESP 16; TEMP 97.8; O2SAT 98
[2017-05-30 05:55] VITALS: BP 114/65; PULSE 78; RESP 16; TEMP 97.9; O2SAT 96
[2017-05-30] MEDS: DOCUSATE SODIUM 100 MG CAP PO SCH ×2 (08:29→20:38)
[2017-05-30] MEDS: lamoTRIgine 25 MG TAB PO SCH ×2 (08:31→20:38)
--- NOTE | 2017-05-30 11:57 | HHI.PYPN ---
Subjective Chief Complaint: Schizophrenia Remarks The patient was seen and case discussed with nursing. Patient was initially pleasant but then I asked him about his previous admission in her previous conversations about his psychosis. Patient became defensive and agitated asking me why I lied. He is vigilant throughout the day. Could be responding to internal stimuli. Insight is poor concerning his diagnosis of the history in plan to walk 250 miles Mental Status Examination Appearance: Other (fair grooming) Consciousness: Alert Orientation: x4 Motor Activity: Other (No motor abnormalities noted.) Speech: Unremarkable Language: Adequate Fund of Knowledge: Adequate Attention and Concentration: Adequate Memory: Unremarkable Mood: Appropriate Affect: Irritable Thought Process & Associations: Intact Thought Content: Appropriate Hallucination Type: None Delusion Type: None Suicidal Ideation: No Suicidal Plan: No Suicidal Intention: No Homicidal Ideation: No Homicidal Plan: No Homicidal Intention: No Insight: Poor Judgment: Poor Results Vitals/IOs Vital Signs Date Time Temp Pulse Resp B/P (MAP) Pulse Ox O2 Delivery O2 Flow Rate FiO2 05/30/17 05:55 97.9 78 16 114/65 (81) 96 Assessment & Plan Problem List: (1) Acute exacerbation of chronic paranoid schizophrenia ICD Codes: F20.0 - Paranoid schizophrenia Assessment & Plan Continue current treatment plan Justification for Cont. Inpt. Patient would decompensate in a less restrictive setting Request HC Surrog/Guard Advoc?: Yes Holden Wood DO May 30, 2017 11:57
[2017-05-30 18:00] VITALS: BP 135/78; PULSE 71; RESP 20; TEMP 97.8; O2SAT 100
[2017-05-31 05:19] VITALS: BP 104/58; PULSE 85; RESP 16; TEMP 98.1; O2SAT 98
[2017-05-31] MEDS: DOCUSATE SODIUM 100 MG CAP PO SCH ×2 (07:33→20:23)
[2017-05-31] MEDS: lamoTRIgine 25 MG TAB PO SCH ×2 (07:33→20:23)
--- NOTE | 2017-05-31 11:25 | HHI.PYPN ---
Subjective Chief Complaint: Schizophrenia Remarks Patient was seen and case discussed with nursing. Patient is preoccupied today that he is being sent to the [facility] of his [facility]. Per nursing he was pacing all morning. However, he is less agitated and not accusatory today. He does his best to be formal and polite. He denies any psychosis. Eating and sleeping well. Compliant with medications Mental Status Examination Appearance: Other (fair grooming) Consciousness: Alert Orientation: x4 Motor Activity: Other (No motor abnormalities noted.) Speech: Unremarkable Language: Adequate Fund of Knowledge: Adequate Attention and Concentration: Adequate Memory: Unremarkable Mood: Appropriate Affect: Blunt Thought Process & Associations: Intact Thought Content: Appropriate Hallucination Type: None Delusion Type: None Suicidal Ideation: No Suicidal Plan: No Suicidal Intention: No Homicidal Ideation: No Homicidal Plan: No Homicidal Intention: No Insight: Poor Judgment: Poor Results Vitals/IOs Vital Signs Date Time Temp Pulse Resp B/P (MAP) Pulse Ox O2 Delivery O2 Flow Rate FiO2 05/31/17 05:19 98.1 85 16 104/58 (73) 98 Intake and Output 05/31/17 05/31/17 05/31/17 07:59 15:59 23:59 Intake Total 240 ml Balance 240 ml Assessment & Plan Problem List: (1) Acute exacerbation of chronic paranoid schizophrenia ICD Codes: F20.0 - Paranoid schizophrenia Assessment & Plan Continue current treatment plan Justification for Cont. Inpt. Patient would decompensate in a less restrictive setting Request HC Surrog/Guard Advoc?: Yes Holden Wood DO May 31, 2017 11:25
[2017-05-31 17:34] VITALS: BP 116/66; PULSE 84; RESP 16; TEMP 98.3; O2SAT 99
[2017-06-01 05:52] VITALS: BP 115/62; PULSE 83; RESP 18; TEMP 97.6; O2SAT 96
[2017-06-01] MEDS: DOCUSATE SODIUM 100 MG CAP PO SCH ×2 (08:59→21:00)
[2017-06-01] MEDS: lamoTRIgine 25 MG TAB PO SCH ×2 (08:59→21:04)
--- NOTE | 2017-06-01 13:12 | HHI.PYPN ---
Subjective Chief Complaint: Schizophrenia Remarks Patient seen and examined with nurse. Chart reviewed. Case discussed with nursing staff. Patient has been no behavioral problem, per nursing staff. On my exam today, patient is calm and cooperative. He is hopeful to go to [facility]. He denies any SI or HI. He denies AVH. He does exhibit a mild moravian preoccupation, for example forming an acrostic from his middle name, Kyle, saying this means "Mikey Accepts You." No bhavik delusions. Complains of some intermittent tremor but no other side effects from medications. He does not presently exhibit a tremor. No physical complaints. Review of Systems Except as stated in HPI: all other systems reviewed are Neg Mental Status Examination Appearance: Appropriate Consciousness: Alert Orientation: x4 Motor Activity: Other (No abnormal motor movements noted. No hand tremor, no cogwheeling, no dystonia, no dyskinesia.) Speech: Unremarkable Language: Adequate Fund of Knowledge: Adequate Attention and Concentration: Adequate Memory: Unremarkable Mood: Appropriate Affect: Blunt Thought Process & Associations: Intact Thought Content: Appropriate Hallucination Type: None Delusion Type: None, Other (Mild moravian preoccupation, no bhavik delusions) Suicidal Ideation: No Suicidal Plan: No Suicidal Intention: No Homicidal Ideation: No Homicidal Plan: No Homicidal Intention: No Insight: Poor Judgment: Poor Results Labs Labs reviewed. No new labs. Vitals/IOs Vital Signs Date Time Temp Pulse Resp B/P (MAP) Pulse Ox O2 Delivery O2 Flow Rate FiO2 06/01/17 05:52 97.6 83 18 115/62 (79) 96 Assessment & Plan Problem List: (1) Acute exacerbation of chronic paranoid schizophrenia ICD Codes: F20.0 - Paranoid schizophrenia Assessment & Plan Continue current psychotropics as ordered. Patient has Cogentin as needed available for any EPS, although he has none presently. Continue to monitor on the inpatient unit. Continue other medications and care as ordered. Justification for Cont. Inpt. Risk for decompensation in less restrictive environment. Discharge Planning Placement. Case discussed with counselor. Request HC Surrog/Guard Advoc?: Yes Pb Rae MD Jun 01, 2017 13:12
[2017-06-01 18:00] VITALS: BP 112/62; PULSE 80; RESP 17; TEMP 98.4; O2SAT 99
[2017-06-02 05:28] VITALS: BP 78/40; PULSE 80; RESP 17; TEMP 98.2; O2SAT 96
[2017-06-02 07:14] VITALS: BP 118/69; PULSE 83
[2017-06-02] MEDS: lamoTRIgine 25 MG TAB PO SCH ×2 (08:21→21:15)
[2017-06-02] MEDS: DOCUSATE SODIUM 100 MG CAP PO SCH ×2 (08:21→21:16)
[2017-06-02] MEDS: BISACODYL EC 5 MG TABEC PO PRN (08:21)
--- NOTE | 2017-06-02 09:27 | PD.TTN ---
Patient Problems 1. Discharge planning 2. Medication compliance 3. Knowledge deficit 4. Lack of coping skills Progress Toward Goals Provider Present: Dr. Hayder Rae Provider Input: 06/02/17 - Dr. Rae reported that the patient remains religiously preoccupied. Patient is compliant with medications and treatment. 05/26/17 - Patient remains without behavioral disturbance and will require new placement as he is unable to return to [facility]. Patient would like to be placed in [facility], however, resources in that [facility] are scarce. Psychiatric Counselors Present: SANAM Driver Psych Therapist Input: 06/02/17 - Patient remains discharge focused and has poor boundaries with this counselor as evidenced by his constant requests to see counselor. Counselor will contact Nae baltazar [facility] to request she writes out a contract disclosing the amount Yelitza will need to pay the [facility] for his first two week of residency there. Patient will be able to pay June's fee as his income will available on June 16. 05/26/17 - Counselor will contact patient's FACT Team account retention representative, Aroldo Tristan, to plan an appropriate discharge. Group Spec/RT/OT/QURESHI Present: CHAN Dennis Group Spec/RT/OT/QURESHI Input: 06/02/17 - Patient attends select groups. 05/26/17 - Patient attends select groups. Discharge Plan [facility] 05/26/17 - Patient is on the FACT Team and will follow-up with [facility]. Documentation Scribe: SANAM Driver Date Resolved: Jun 02, 2017 Anali Silverio Jun 02, 2017 09:27
[2017-06-02] MEDS ORDERED: WITCH HAZEL 50%/GLYCERIN 12.5% 40 PAD JAR TOPICAL PRN (12:45)
--- NOTE | 2017-06-02 13:22 | HHI.PYPN ---
Subjective Chief Complaint: Schizophrenia Remarks Patient seen and examined with nurse. Chart reviewed. Case discussed with nursing staff who reports patient complained of bleeding per rectum following bowel movement. He has been no behavioral problem on the unit. Case discussed in treatment team. Counselor reports that patient may go to [facility] once contract has been completed. Treatment team is unanimous that patient is not sufficiently psychiatrically decompensated to warrant [facility] referral. On my examination today, the patient complains of bright red blood on toilet paper and in bowl following BM. He notes that he felt a mass at his anus and endeavored to reduce this manually, expressing more blood. Patient counseled against manipulating mass. He is calm and cooperative with evaluation. He denies any SI/HI/AVH. No baptism preoccupation today. No side effects from medications. No physical complaints. Review of Systems Except as stated in HPI: all other systems reviewed are Neg Mental Status Examination Appearance: Appropriate Consciousness: Alert Orientation: x4 Motor Activity: Normal gait Speech: Unremarkable Language: Adequate Fund of Knowledge: Adequate Attention and Concentration: Adequate Memory: Unremarkable Mood: Appropriate Affect: Appropriate Thought Process & Associations: Intact Thought Content: Appropriate Hallucination Type: None Delusion Type: None, Other Suicidal Ideation: No Suicidal Plan: No Suicidal Intention: No Homicidal Ideation: No Homicidal Plan: No Homicidal Intention: No Insight: Poor Judgment: Poor Mental Status Exam Remarks No visible rash Results Labs Labs reviewed. No new labs. Vitals/IOs Vital Signs Date Time Temp Pulse Resp B/P (MAP) Pulse Ox O2 Delivery O2 Flow Rate FiO2 06/02/17 07:14 83 118/69 (85) 06/02/17 05:28 98.2 17 96 Intake and Output 06/02/17 06/02/17 06/03/17 08:00 16:00 00:00 Intake Total 480 ml Balance 480 ml Assessment & Plan Problem List: (1) Acute exacerbation of chronic paranoid schizophrenia ICD Codes: F20.0 - Paranoid schizophrenia Assessment & Plan Continue Lamictal as ordered. Patient has Abilify NGUYỄN on board. Consult GI for what sounds like bleeding hemorrhoid. I will order Tucks pads and check a CBC while awaiting GI consultation. Continue to monitor on the inpatient unit. Continue other medications and care as ordered. Justification for Cont. Inpt. Risk for decompensation in less restrictive environment. Discharge Planning Placement Request HC Surrog/Guard Advoc?: Yes Pb Rae MD Jun 02, 2017 13:21
[2017-06-02] MEDS ORDERED: IBUPROFEN 600 MG TAB PO PRN (14:00)
--- NOTE | 2017-06-02 15:21 | PD.CONS ---
HPI History of Present Illness This is a 36 year old male was admitted to the hospital on 05/21/2017 for evaluation of delusions and possible psychosis. He is now under the care of the psychiatrist and is currently being managed on the psychiatric floor. Currently patient has a history of constipation which appears to be worse when he is in the hospital. Currently denies any diarrhea, nausea, vomiting, heartburn, and no abdominal pain. Patient states that he noticed bright red rectal bleeding when wiping approximately 4 days ago. He did note some constipation this a.m. and after he finished defecating he noticed for the first time bright red blood dripping into the toilet. Patient does note some generalized rectal pain and discomfort especially while sitting. He has no history of EGD or colonoscopy. Tucks pads have been ordered for the patient but ineffective so far. Patient takes no GI medicines on an outpatient basis and has no known family history of colon cancer. Current hemoglobin 16.5 hematocrit 47.8. (Lynda Lamb) PFSH Past Medical History History of constipation History of hemorrhoids Schizoaffective disorder Depression Tobacco dependence Paranoia Past Surgical History None known (Lynda Lamb) Coded Allergies: No Known Allergies (Unverified , 02/10/17) Medications Administered Medications Medications (Trade) Dose Ordered Sig/Domingo Route PRN Reason Start Time Stop Time Status Last Admin Dose Admin Lamotrigine (LaMICtal) 50 mg DAILY PO 05/23/17 09:00 06/02/17 08:21 Lamotrigine (LaMICtal) 75 mg HS PO 05/22/17 21:00 06/01/17 21:04 Diphenhydramine HCl (Benadryl) 50 mg HS PRN PO INSOMNIA 05/22/17 12:15 05/22/17 21:25 Docusate Sodium (Colace) 100 mg BID PO 05/25/17 21:00 06/02/17 08:21 Bisacodyl (Dulcolax Ec) 10 mg DAILY PRN PO CONSTIPATION 05/25/17 16:15 06/02/17 08:21 Family History No known colon cancer Social History Currents tobacco smoker three quarters of a pack a day Denies any alcohol or current drug use Does have a history of marijuana smoking but none recently Patient is single sisters contact is Tammy Mcbride, phone number per the records [phone] she is currently the patient's healthcare surrogate for this admission (Lynda Lamb) Review of Systems Gastrointestinal: COMPLAINS OF: Constipation Rectal bleeding onset approximately 5 days ago (Lynda Lamb) GI Exam Vitals I&O Vital Signs Date Time Temp Pulse Resp B/P (MAP) Pulse Ox O2 Delivery O2 Flow Rate FiO2 06/02/17 07:14 83 118/69 (85) 06/02/17 05:28 98.2 80 17 78/40 (53) 96 06/01/17 18:00 98.4 80 17 112/62 (79) 99 I/O 06/01/17 06/01/17 06/01/17 06/02/17 06/02/17 06/02/17 07:00 15:00 23:00 07:00 15:00 23:00 Intake Total 480 ml Balance 480 ml Intake Oral 480 ml Imaging Last Impressions Abdomen X-Ray 05/25/17 0000 Signed Impressions: Service Date/Time: Thursday, May 25, 2017 12:16 - CONCLUSION: No acute disease. Janusz Calloway MD Physical Examination HEENT: Pupils round and reactive to light; normocephalic; atraumatic; no jaundice. Oral cavity clean NECK: Neck is supple, no JVD, no lymphadenopathy. CHEST: Chest is clear no obvious rhonchi or wheezing CARDIAC: Regular rate and rhythm, S1-S2 ABDOMEN: Soft, nondistended, nontender; no hepatosplenomegaly; bowel sounds are present in all four quadrants. EXTREMITIES: No clubbing, cyanosis, or edema. SKIN: Normal; no rash; no jaundice. 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 Today patient had a constipated stool and had bright red blood dripping into the toilet. Patient noted one large hard area in the rectal vault which is probably a hemorrhoid. History of constipation and patient notes constipation is worse while in the hospital. Abdominal x-ray unremarkable done on 05/25/2017. Currently receiving psychiatric evaluation and treatment plan on the psychiatric unit Currently patient denies any nausea vomiting heartburn or upper GI symptoms. No previous EGD or colonoscopy Plan Consent for sigmoidoscopy with possible IRC, explained to the patient in detail which included a bowel prep for safety and cleanliness and visualization Will transfer to 407 today. Medical Psy unit. Prep mag citrate bottle 1 Fleets enema 1, patient agreed to the plan ProctoFoam HC every 8 hrs as needed. Bowel regimen, will add MiraLAX daily Monitor hemoglobin and labs Monitor for any uncontrolled rectal bleeding Supportive care Patient was seen per myself and Dr. Lizarraga, this note was written on her behalf (Lynda Lamb) Physician Comments agree with above (Bharati Lizarraga MD) Lynda Lamb Jun 02, 2017 15:21 Bharati Lizarraga MD Jun 02, 2017 20:53
[2017-06-02] MEDS ORDERED: HYDROCORTISONE/PRAMOXINE RECTAL FOAM 10 GM CAN RECTAL PRN (15:30)
[2017-06-02] MEDS ORDERED: BISACODYL EC 5 MG TABEC PO PRN (15:30)
[2017-06-02] MEDS: POLYETHYLENE GLYCOL 17 GM PKG PO SCH (17:45)
[2017-06-02] MEDS ORDERED: MAGNESIUM CITRATE SOLN 300 ML BTL PO ONE (18:00)
[2017-06-02] MEDS ORDERED: SOD PHOSPHATE/SOD BIPHOSPHATE (ADULT) ENEMA 133ML RECTAL ONE (20:00)
[2017-06-03 06:00] VITALS: BP 92/54; PULSE 80; RESP 16; TEMP 97.8; O2SAT 95
--- NOTE | 2017-06-03 08:39 | HHI.PYPN ---
Subjective Chief Complaint: Schizophrenia Remarks Patient seen and examined on med-psych unit prior to GI procedure. Chart reviewed. Case discussed with nursing staff. No behavioral issues overnight. CBC I ordered yesterday was not obtained by lab, and I have instructed nurse to call the lab to have this drawn [Update @13:22: CBC resulted and is wnl, no anemia]. On my exam this morning, patient is calm and cooperative with exam. He is appropriate and relevant in conversation. No psychotic material. No SI/ HI. He is hopeful to go to [facility] 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 He continues to complain of mild hand tremor, worse at HS but denies other side effects from medications. Declines scheduled anticholinergic and says that Cogentin has been no help in the past. He is open to having some p.r.n. Artane available if needed. No physical complaints. Denies further bleeding from rectum. Review of Systems Except as stated in HPI: all other systems reviewed are Neg Mental Status Examination Appearance: Appropriate Consciousness: Alert Orientation: x4 Motor Activity: Other (No hand tremor, no dystonia, no dyskinesia.) Speech: Unremarkable Language: Adequate Fund of Knowledge: Adequate Attention and Concentration: Adequate Memory: Unremarkable Mood: Appropriate Affect: Appropriate Thought Process & Associations: Intact, Logical, Linear Thought Content: Appropriate Hallucination Type: None Delusion Type: None, Other Suicidal Ideation: No Suicidal Plan: No Suicidal Intention: No Homicidal Ideation: No Homicidal Plan: No Homicidal Intention: No Insight: Poor Judgment: Poor Results Labs Labs reviewed. Vitals/IOs Vital Signs Date Time Temp Pulse Resp B/P (MAP) Pulse Ox O2 Delivery O2 Flow Rate FiO2 06/03/17 06:00 97.8 80 16 92/54 (67) 95 Intake and Output 06/03/17 06/03/17 06/04/17 08:00 16:00 00:00 Intake Total 120 ml Balance 120 ml Assessment & Plan Problem List: (1) Acute exacerbation of chronic paranoid schizophrenia ICD Codes: F20.0 - Paranoid schizophrenia Assessment & Plan Patient continues to do well on the unit. Continue Lamictal as ordered. Ankit on board. Replace Cogentin p.r.n. with Artane p.r.n.. For GI procedure today, will follow up results. Continue other medications and care as ordered. Justification for Cont. Inpt. Risk for decompensation in less restrictive environment. Discharge Planning Counselor working on placement. Request HC Surrog/Guard Advoc?: Yes Pb Rae MD Jun 03, 2017 08:39
[2017-06-03] MEDS: DOCUSATE SODIUM 100 MG CAP PO SCH ×2 (08:45→20:48)
[2017-06-03] MEDS: POLYETHYLENE GLYCOL 17 GM PKG PO SCH (08:45)
[2017-06-03] MEDS: lamoTRIgine 25 MG TAB PO SCH ×2 (08:46→20:48)
[2017-06-03 10:43] LABS: AUTOMATED NEUTROPHIL # 5.6 TH/MM3 (1.8-7.7); BASOPHIL % 0.5 % (0.0-2.0); EOSINOPHIL # 0.2 TH/MM3 (0-0.4); EOSINOPHIL % 1.9 % (0.0-4.0); HEMATOCRIT 47.8 % (39.0-51.0); HEMOGLOBIN 16.4 GM/DL (13.0-17.0); LYMPHOCYTE # 1.8 TH/MM3 (1.0-4.8); MEAN CELL VOLUME 85.4 FL (80.0-100.0); MEAN CORPUSCULAR HEMOGLOBIN 29.4 PG (27.0-34.0); MEAN CORPUSCULAR HGB CONC 34.4 % (32.0-36.0); MEAN PLATELET VOLUME 8.4 FL (7.0-11.0); MONO % 4.6 % (0.0-8.0); MONOCYTE # 0.4 TH/MM3 (0-0.9); PLATELET COUNT 203 TH/MM3 (150-450); RED CELL DISTRIBUTION WIDTH 13.3 % (11.6-17.2)
[2017-06-03 18:00] VITALS: BP 120/62; PULSE 90; RESP 15; TEMP 98.1; O2SAT 97
[2017-06-04 06:30] VITALS: BP 97/53; PULSE 80; RESP 18; TEMP 97.8; O2SAT 96
--- NOTE | 2017-06-04 07:58 | HHI.PYPN ---
Subjective Chief Complaint: Schizophrenia Remarks Patient seen and examined. Chart reviewed. Sigmoidoscopy report reviewed. Case discussed with nursing staff. No behavioral issues overnight. Case discussed with counselor who reports that Nae from [facility] has not yet contacted her regarding patient's placement there. On my examination today, patient is in good spirits. He remains calm and cooperative. He denies any SI , HI or audiovisual hallucinations. No side effects from medications. No physical complaints. Requesting transfer back to [facility] unit and requesting 1800- calorie a day diet because he says he would like to lose some weight. Review of Systems Except as stated in HPI: all other systems reviewed are Neg Mental Status Examination Appearance: Appropriate Consciousness: Alert Orientation: x4 Motor Activity: Other (No abnormal motor movements noted) Speech: Unremarkable Language: Adequate Fund of Knowledge: Adequate Attention and Concentration: Adequate Memory: Unremarkable Mood: Appropriate (Remains appropriate) Affect: Appropriate Thought Process & Associations: Intact, Logical, Goal directed, Linear Thought Content: Appropriate Hallucination Type: None Delusion Type: None, Other Suicidal Ideation: No Suicidal Plan: No Suicidal Intention: No Homicidal Ideation: No Homicidal Plan: No Homicidal Intention: No Insight: Poor Judgment: Poor Results Labs Test 06/03/17 10:28 White Blood Count 8.0 TH/MM3 Red Blood Count 5.60 MIL/MM3 Hemoglobin 16.4 GM/DL Hematocrit 47.8 % Mean Corpuscular Volume 85.4 FL Mean Corpuscular Hemoglobin 29.4 PG Mean Corpuscular Hemoglobin Concent 34.4 % Red Cell Distribution Width 13.3 % Platelet Count 203 TH/MM3 Mean Platelet Volume 8.4 FL Neutrophils (%) (Auto) 70.0 % Lymphocytes (%) (Auto) 23.0 % Monocytes (%) (Auto) 4.6 % Eosinophils (%) (Auto) 1.9 % Basophils (%) (Auto) 0.5 % Neutrophils # (Auto) 5.6 TH/MM3 Lymphocytes # (Auto) 1.8 TH/MM3 Monocytes # (Auto) 0.4 TH/MM3 Eosinophils # (Auto) 0.2 TH/MM3 Basophils # (Auto) 0.0 TH/MM3 CBC Comment DIFF FINAL Differential Comment Labs reviewed Vitals/IOs Vital Signs Date Time Temp Pulse Resp B/P (MAP) Pulse Ox O2 Delivery O2 Flow Rate FiO2 06/04/17 06:30 97.8 80 18 97/53 (58) 59 Assessment & Plan Problem List: (1) Acute exacerbation of chronic paranoid schizophrenia ICD Codes: F20.0 - Paranoid schizophrenia Assessment & Plan Continue current psychotropics as ordered. GI input noted and appreciated. Transfer back to 2600 unit. I will order the calorie restricted diet as requested by the patient as his BMI is somewhat elevated, and I will additionally order high-fiber diet as recommended by GI. Continue other medications and care as ordered. Justification for Cont. Inpt. Risk for decompensation in less restrictive environment Discharge Planning Placement Request HC Surrog/Guard Advoc?: Yes Pb Rae MD Jun 04, 2017 07:58
[2017-06-04] MEDS: POLYETHYLENE GLYCOL 17 GM PKG PO SCH (09:00)
[2017-06-04] MEDS: lamoTRIgine 25 MG TAB PO SCH ×2 (09:53→21:12)
[2017-06-04] MEDS: DOCUSATE SODIUM 100 MG CAP PO SCH ×2 (09:53→21:12)
--- NOTE | 2017-06-04 14:57 | HHI.GIFU ---
Subjective Remarks Up in shower and able to ambulate in room Denies any further rectal bleeding Afebrile Hemoglobin 16.4 (Lynda Lamb) Objective Vitals I&O Vital Signs Date Time Temp Pulse Resp B/P (MAP) Pulse Ox O2 Delivery O2 Flow Rate FiO2 06/04/17 06:30 97.8 80 18 97/53 (68) 96 06/03/17 18:00 98.1 90 15 120/62 (81) 97 I/O 06/03/17 06/03/17 06/03/17 06/04/17 06/04/17 06/04/17 07:00 15:00 23:00 07:00 15:00 23:00 Intake Total 120 ml 0 ml 480 ml 720 ml Balance 120 ml 0 ml 480 ml 720 ml Intake Oral 120 ml 0 ml 480 ml 720 ml # Voids 2 Imaging Last Impressions Abdomen X-Ray 05/25/17 0000 Signed Impressions: Service Date/Time: Thursday, May 25, 2017 12:16 - CONCLUSION: No acute disease. Janusz Calloway MD Physical Exam HEENT: Pupils round and reactive to light; normocephalic; atraumatic; no jaundice. Throat is clear. NECK: Neck is supple, no JVD, no lymphadenopathy. CHEST: Chest is clear to auscultation and percussion. CARDIAC: Regular rate and rhythm with no murmur gallop or rubs. ABDOMEN: Soft, nondistended, nontender; no hepatosplenomegaly; bowel sounds are present in all four quadrants. EXTREMITIES: No clubbing, cyanosis, or edema. SKIN: Normal; no rash; no jaundice. BANKRUPTCY MANAGER: No focal deficits; alert and oriented times three. (Lynda Lamb) Assessment and Plan Plan Assessment/history Chief complaint and reason for consultation , rectal bleeding, onset approximately 5 days ago which started out with bright red blood noted with wiping after defecation. Today patient had a constipated stool and had bright red blood dripping into the toilet. Patient noted one large hard area in the rectal vault which is probably a hemorrhoid. History of constipation and patient notes constipation is worse while in the hospital. Abdominal x-ray unremarkable done on 05/25/2017. Currently receiving psychiatric evaluation and treatment plan on the psychiatric unit Currently patient denies any nausea vomiting heartburn or upper GI symptoms. No previous EGD or colonoscopy 06/04/2017 up walking in room and able to take a shower today. No further rectal bleeding. Diet regular, discussed no straining and bowel regimen Plan Increase activity Avoid straining with defecation Regular diet ProctoFoam HC every 8 hrs as needed. Tucks pads as needed Bowel regimen, MiraLAX daily Monitor hemoglobin and labs Supportive care GI will sign off and only follow as needed Patient was seen per myself and Dr. Lizarraga, this note was written on her behalf (Lynda Lamb) Lynda Lamb Jun 04, 2017 14:57 Bharati Lizarraga MD Jun 04, 2017 20:54
[2017-06-04 18:02] VITALS: BP 118/69; PULSE 86; RESP 17; TEMP 98.2; O2SAT 96
[2017-06-05 04:57] VITALS: BP 109/59; PULSE 80; RESP 16; TEMP 98; O2SAT 96
[2017-06-05] MEDS: DOCUSATE SODIUM 100 MG CAP PO SCH ×2 (09:20→21:28)
[2017-06-05] MEDS: lamoTRIgine 25 MG TAB PO SCH ×2 (09:21→21:28)
[2017-06-05] MEDS: POLYETHYLENE GLYCOL 17 GM PKG PO SCH (09:21)
--- NOTE | 2017-06-05 11:30 | HHI.PYPN ---
Subjective Chief Complaint: Schizophrenia Remarks Patient seen and examined. Chart reviewed. Case discussed with nursing staff. Case discussed in treatment team. On my examination today, patient is doing well on the lower acuity unit. No psychotic symptoms. Remains in good spirits and is hopeful for placement soon. No side effects from medications. Requesting to sign voluntary. Review of Systems Except as stated in HPI: all other systems reviewed are Neg Mental Status Examination Appearance: Appropriate Consciousness: Alert Orientation: x4 Motor Activity: Other (No motor abnormalities noted) Speech: Unremarkable Language: Adequate Fund of Knowledge: Adequate Attention and Concentration: Adequate Memory: Unremarkable Mood: Appropriate Affect: Appropriate Thought Process & Associations: Intact, Logical, Goal directed, Linear Thought Content: Appropriate Hallucination Type: None Delusion Type: None, Other Suicidal Ideation: No Suicidal Plan: No Suicidal Intention: No Homicidal Ideation: No Homicidal Plan: No Homicidal Intention: No Insight: Poor Judgment: Poor Results Labs Labs reviewed. No new labs. Vitals/IOs Vital Signs Date Time Temp Pulse Resp B/P (MAP) Pulse Ox O2 Delivery O2 Flow Rate FiO2 06/05/17 04:57 98.0 80 16 109/59 (76) 96 Assessment & Plan Problem List: (1) Acute exacerbation of chronic paranoid schizophrenia ICD Codes: F20.0 - Paranoid schizophrenia Assessment & Plan Continue current psychotropics as ordered. GI input noted and appreciated. Continue other medications and care as ordered. Patient may sign voluntary. Justification for Cont. Inpt. Risk for decompensation in less restrictive environment. Discharge Planning Placement. Request HC Surrog/Guard Advoc?: Yes Pb Rae MD Jun 05, 2017 11:30
[2017-06-05 17:58] VITALS: BP 111/62; PULSE 91; RESP 17; TEMP 98.1; O2SAT 97
[2017-06-06 05:40] VITALS: BP 104/62; PULSE 82; RESP 16; TEMP 98.2; O2SAT 98
[2017-06-06] MEDS: lamoTRIgine 25 MG TAB PO SCH ×2 (08:51→21:26)
[2017-06-06] MEDS: DOCUSATE SODIUM 100 MG CAP PO SCH ×2 (08:51→21:26)
[2017-06-06] MEDS: POLYETHYLENE GLYCOL 17 GM PKG PO SCH (08:51)
--- NOTE | 2017-06-06 12:42 | HHI.PYPN ---
Subjective Chief Complaint: Schizophrenia Remarks Patient was seen and case discussed with nursing. Patient is alert and oriented 4. Behaving well on the unit. Looking forward to discharge early next week. No psychotic symptoms elicited. Tolerating medications well Mental Status Examination Appearance: Appropriate Consciousness: Alert Orientation: x4 Motor Activity: Other (No motor abnormalities noted) Speech: Unremarkable Language: Adequate Fund of Knowledge: Adequate Attention and Concentration: Adequate Memory: Unremarkable Mood: Appropriate Affect: Appropriate Thought Process & Associations: Intact, Logical, Goal directed, Linear Thought Content: Appropriate Hallucination Type: None Delusion Type: None, Other Suicidal Ideation: No Suicidal Plan: No Suicidal Intention: No Homicidal Ideation: No Homicidal Plan: No Homicidal Intention: No Insight: Poor Judgment: Poor Results Vitals/IOs Vital Signs Date Time Temp Pulse Resp B/P (MAP) Pulse Ox O2 Delivery O2 Flow Rate FiO2 06/06/17 05:40 98.2 82 16 104/62 (76) 98 Intake and Output 06/06/17 06/06/17 06/07/17 08:00 16:00 00:00 Intake Total 480 ml Balance 480 ml Assessment & Plan Problem List: (1) Acute exacerbation of chronic paranoid schizophrenia ICD Codes: F20.0 - Paranoid schizophrenia Assessment & Plan Continue current treatment plan Justification for Cont. Inpt. Patient would decompensate in a less restrictive setting Request HC Surrog/Guard Advoc?: Yes Holden Wood DO Jun 06, 2017 12:42
[2017-06-06 18:29] VITALS: BP 131/60; PULSE 93; RESP 18; TEMP 99.2; O2SAT 97
[2017-06-07 06:32] VITALS: BP 101/61; PULSE 76; RESP 16; TEMP 98; O2SAT 96
[2017-06-07] MEDS: POLYETHYLENE GLYCOL 17 GM PKG PO SCH (08:51)
[2017-06-07] MEDS: DOCUSATE SODIUM 100 MG CAP PO SCH ×2 (08:51→20:39)
[2017-06-07] MEDS: lamoTRIgine 25 MG TAB PO SCH ×2 (08:52→20:39)
--- NOTE | 2017-06-07 11:52 | HHI.PYPN ---
Subjective Chief Complaint: Schizophrenia Remarks Patient was seen and case discussed with nursing. Patient is pleasant and cooperative with exam. He is formal and polite. Compliant with medications. Looking forward to discharge next week. No outbursts or agitation. Compliant with medications Mental Status Examination Appearance: Appropriate Consciousness: Alert Orientation: x4 Motor Activity: Other (No motor abnormalities noted) Speech: Unremarkable Language: Adequate Fund of Knowledge: Adequate Attention and Concentration: Adequate Memory: Unremarkable Mood: Appropriate Affect: Appropriate Thought Process & Associations: Intact, Logical, Goal directed, Linear Thought Content: Appropriate Hallucination Type: None Delusion Type: None, Other Suicidal Ideation: No Suicidal Plan: No Suicidal Intention: No Homicidal Ideation: No Homicidal Plan: No Homicidal Intention: No Insight: Poor Judgment: Poor Results Vitals/IOs Vital Signs Date Time Temp Pulse Resp B/P (MAP) Pulse Ox O2 Delivery O2 Flow Rate FiO2 06/07/17 06:32 98.0 76 16 101/61 (74) 96 Assessment & Plan Problem List: (1) Acute exacerbation of chronic paranoid schizophrenia ICD Codes: F20.0 - Paranoid schizophrenia Assessment & Plan Continue current treatment plan Justification for Cont. Inpt. Patient would decompensate in a less restrictive setting Request HC Surrog/Guard Advoc?: Yes Holden Wood DO Jun 07, 2017 11:52
[2017-06-07 18:09] VITALS: BP 135/72; PULSE 88; RESP 16; TEMP 98.2; O2SAT 96
[2017-06-08 06:17] VITALS: BP 99/52; PULSE 81; RESP 18; TEMP 97.9; O2SAT 95
[2017-06-08] MEDS: lamoTRIgine 25 MG TAB PO SCH ×2 (09:58→20:23)
[2017-06-08] MEDS: DOCUSATE SODIUM 100 MG CAP PO SCH ×2 (09:58→20:23)
[2017-06-08] MEDS: POLYETHYLENE GLYCOL 17 GM PKG PO SCH (09:58)
--- NOTE | 2017-06-08 14:32 | HHI.PYPN ---
Subjective Chief Complaint: Schizophrenia Remarks Patient seen and examined with nurse. Chart reviewed. Case discussed with nursing staff. No behavioral issues noted. Case discussed with counselor. We are still awaiting finalization of plans for placement for patient. On my examination today, the patient is calm and cooperative. He denies any SI, HI or AVH. No side effects from medications. No physical complaints. Hopeful for discharge soon. Review of Systems Except as stated in HPI: all other systems reviewed are Neg Mental Status Examination Appearance: Appropriate Consciousness: Alert Orientation: x4 Motor Activity: Other (No abnormal motor movements noted) Speech: Unremarkable Language: Adequate Fund of Knowledge: Adequate Attention and Concentration: Adequate Memory: Unremarkable Mood: Appropriate Affect: Appropriate Thought Process & Associations: Intact, Logical, Goal directed, Linear Thought Content: Appropriate Hallucination Type: None Delusion Type: None, Other Suicidal Ideation: No Suicidal Plan: No Suicidal Intention: No Homicidal Ideation: No Homicidal Plan: No Homicidal Intention: No Insight: Poor Judgment: Poor Results Labs Labs reviewed Vitals/IOs Vital Signs Date Time Temp Pulse Resp B/P (MAP) Pulse Ox O2 Delivery O2 Flow Rate FiO2 06/08/17 06:17 97.9 81 18 99/52 (92) 95 Assessment & Plan Problem List: (1) Acute exacerbation of chronic paranoid schizophrenia ICD Codes: F20.0 - Paranoid schizophrenia Assessment & Plan Continue current psychiatric medications as ordered. Continue to monitor on the inpatient unit. Continue other medications and care as ordered. Justification for Cont. Inpt. Risk for decompensation in less restrictive environment. Discharge Planning Hopeful for discharge later in the week to assisted living facility. Request HC Surrog/Guard Advoc?: Yes Pb Rae MD Jun 08, 2017 14:32
[2017-06-08 17:19] VITALS: BP 112/68; PULSE 88; RESP 16; TEMP 98.7; O2SAT 99
[2017-06-09 05:50] VITALS: BP 92/54; PULSE 80; RESP 16; TEMP 98.1; O2SAT 96
[2017-06-09] MEDS: lamoTRIgine 25 MG TAB PO SCH (08:19)
[2017-06-09] MEDS: DOCUSATE SODIUM 100 MG CAP PO SCH (08:19)
[2017-06-09] MEDS: POLYETHYLENE GLYCOL 17 GM PKG PO SCH (08:20)
--- NOTE | 2017-06-09 09:16 | PD.TTN ---
Patient Problems 1. Discharge planning 2. Medication compliance 3. Knowledge deficit 4. Lack of coping skills Progress Toward Goals Provider Present: Dr. Hayder Rae Provider Input: 06/09/17 - Patient remains compliant with medications and he is awaiting placement at [facility]. 06/02/17 - Dr. Rae reported that the patient remains religiously preoccupied. Patient is compliant with medications and treatment. 05/26/17 - Patient remains without behavioral disturbance and will require new placement as he is unable to return to [facility]. Patient would like to be placed in [facility], however, resources in that [facility] are scarce. Psychiatric Counselors Present: SANAM Driver Psych Therapist Input: 06/09/17 - Counselor will contact [facility] to see if they will accept the patient prior to the hospital signing the contract. 06/02/17 - Patient remains discharge focused and has poor boundaries with this counselor as evidenced by his constant requests to see counselor. Counselor will contact [facility] to request she writes out a contract disclosing the amount Yelitza will need to pay the [facility] for his first two week of residency there. Patient will be able to pay June's fee as his income will available on June 16. 05/26/17 - Counselor will contact patient's FACT Team inbound sales representative, Aroldo Tristan, to plan an appropriate discharge. Group Spec/RT/OT/QURESHI Present: CHAN Dennis Group Spec/RT/OT/QURESHI Input: 06/09/17 - Patient attedds select groups and his behavior is appropriate. 06/02/17 - Patient attends select groups. 05/26/17 - Patient attends select groups. Discharge Plan [facility] 05/26/17 - Patient is on the FACT Team and will follow-up with [facility]. Documentation Scribe: SANAM Driver Date Resolved: Jun 02, 2017 Anali Silverio Jun 09, 2017 09:16
[2017-06-09] MEDS ORDERED: LAMO25 PO ×2 (12:25)
[2017-06-09] MEDS ORDERED: FLEE5TAB PO (12:25)
[2017-06-09] MEDS ORDERED: TUCKSPAD TOPICAL (12:25)
[2017-06-09] MEDS ORDERED: POLY17S PO (12:25)
[2017-06-09] MEDS ORDERED: DOCU1CAP39 PO (12:25)
[2017-06-09] MEDS ORDERED: ARIP1.6I IM (12:26)
--- NOTE | 2017-06-09 12:27 | HHI.DS ---
Psychiatry Discharge Summary Inpatient Psychiatric care?: Yes Advance Directive: No Reason Not Provided: Due to Patient Condition Mental Health AdvanceDirective: No Health Care Proxy: Yes (sister) Admission Admission Date May 22, 2017 at 11:49 Admission Diagnosis: (1) Acute exacerbation of chronic paranoid schizophrenia ICD Code: F20.0 - Paranoid schizophrenia Brief History Mr. Jain is a 36-year-old male with a history of schizophrenia who presents under an ex parte order initiated by child welfare caseworker Lynda Rey alleging that the patient is threatening to walk to the [facility] on foot with no funds and no housing. Further allegations include that the patient has been making delusional statements such as saying that he is "marked by the devil" and that the patient does not believe that he has a mental illness. Patient is well-known to me from fairly lengthy admission from January of last year to March of this year. The patient had been transferred to [facility] with the plan of sending him to the count includes the [facility], although he was apparently subsequently discharged to a lower level of care. Patient seen and examined. Chart reviewed. Case discussed with nurse. On my examination today, the patient presents as a variable and somewhat unreliable historian. He initially says that he does indeed wish to go to [facility] on foot but can provide no explanation for how he will support himself in the journey or once he gets there. He does say that he has gotten services in [facility] before, but he has made no arrangements for his psychiatric care or other care there presently. He says that he wants to leave the facility in which he was apparently placed by [facility], [facility], because this facility is primarily for people with substance use issues he says and "I am not an addict. " Presently, he denies suicidal or homicidal ideation, but it is not clear that he is reliable to contract for safety. I can elicit no depressive or hypomanic/manic symptoms. No bhavik delusional material but see allegations noted above. Remainder of the psychiatric ROS is negative. No acute physical complaints. Nursing has reached out to patient's sister who verbalizes grave concerns to nursing about patient's plan to go to [facility]. I have myself reached out to patient's outpatient psychiatrist Dr. Peterson who notes that the patient has been becoming increasingly irrational over the last several weeks and that it is impossible to reason with him. He also expresses concern about the patient's case and agrees that inpatient psychiatric admission is the most reasonable step at this point. Past psychiatric history: The patient has a history of schizophrenia. He follows with the FACT team. Most recent psychiatric admission was here in [place]. Denies a history of suicide attempts. Family history: Patient denies any family history of mental illness. Chemical dependency history: Patient does have a history of cannabis use issues but denies any substance use presently. Social history: Patient had been residing at facility as noted above. He is single with no children. He has his GED. He collects $1200 a month in [place]. He denies any access to guns or firearms. I did reach out to patient's sister, Tammy Juan- [phone] to obtain consent for medications and to discuss the case. She is willing to serve as the patient's health care surrogate for this admission. I also called over to [facility] Sandoval to confirm patient's medication list: Abilify Aristada 662mg IM last administered yesterday Lamictal 50mg BID Tobacco Use In Past 30 Days: No Tobacco Past 30 Days Alcohol Use: Monthly or Less Hospital Course Patient was admitted to a locked, inpatient psychiatric unit. A GI consultation was obtained. Appropriate precautions were in place throughout patient's hospital stay. Patient was seen and examined on the unit by psychiatry and also visited by counselor. Psychotropic medications were adjusted. There was no evidence of suicidality or homicidality on the inpatient unit. There was no evidence of self-care deficit. Patient remained in behavioral control and was compliant with medications. Collateral information was obtained from the patient's outpatient mental health providers and sister. On the day of discharge: Patient seen and examined with nurse. Chart reviewed. Case discussed with nursing staff. No behavioral issues noted overnight. Case discussed in treatment team. Counselor informs me that patient may go to [facility] today. On my examination today, the patient is requesting discharge from the inpatient psychiatric unit today. He is excited at the prospect of going to [facility]. He denies any suicidal or homicidal ideation, intent or plan on direct questioning and contracts for safety. Mood is stable and I can elicit no depressive or hypomanic/manic symptoms. He denies any audiovisual hallucinations. I can elicit no delusional material. He denies any side effects from medications. I have discussed with him his discharge medication regimen and highlighted the need for subsequent Abilify injections. No physical complaints. Suicide and violence risk assessment on day of discharge both suggest lower imminent risk from mental illness, and the patient' s level of function is adequate for outpatient care. Patient has maximized benefit from this inpatient psychiatric hospital stay and will be discharged today with psychiatric follow-up as arranged by counselor. Patient is also to follow up with primary care. I have reminded the patient to return to the psychiatric emergency room for any concerning psychiatric symptoms as part of a general safety plan. Results Blood Pressure 92 / 54 Vital Signs Date Time Temp Pulse Resp B/P (MAP) Pulse Ox O2 Delivery O2 Flow Rate FiO2 06/09/17 05:50 98.1 80 16 92/54 (67) 96 Laboratory Results Test 05/23/17 07:43 Cholesterol Level 193 MG/DL (120-200) HDL Cholesterol 55.2 MG/DL (40.0-60.0) Hemoglobin A1c 4.5 % (4.3-6.0) LDL Cholesterol 120 MG/DL (0-99) Triglycerides Level 90 MG/DL (42-150) Summary of Procedures None done Imaging Last Impressions Abdomen X-Ray 05/25/17 0000 Signed Impressions: Service Date/Time: Thursday, May 25, 2017 12:16 - CONCLUSION: No acute disease. Janusz Calloway MD Pending results at discharge: No Medications # of Antipsychotic meds at D/C: 1 Approp Antipsych med options 1 - Minimum of three failed multiple trials of monotherapy. 2 - Documented plan to taper to monotherapy due to previous use of multiple meds OR cross-taper in progress at D/C. 3 - Documentation of augmentation of Clozapine. 4 - Justification other than those listed in allowable values 1-3, document here : Discharge Discharge Date: Jun 09, 2017 Discharge Diagnosis: (1) Acute exacerbation of chronic paranoid schizophrenia Diagnosis: Principal (stable) ICD Code: F20.0 - Paranoid schizophrenia Pt Condition on Discharge: Stable Discharge Disposition: [facility] Discharge Instructions Diet Instructions: As Tolerated, No Restrictions Activities you can perform: Weight Bearing as Manpreet Scheduled Appointment: [facility] Appointment Date: Jun 10, 2017 Appointment Time: 7:30 a.m. New Medications: Aripiprazole Lauroxil ER Inj (Aristada ER Inj) 662 Mg/2.4 Ml Susp 662 MG IM Q28D for Schizophrenia, #1 INJECTION 0 Refills This dose of Aristada is due on 06/15/17. Bisacodyl DR (Bisacodyl EC) 5 Mg Tabec 10 MG PO DAILY PRN for CONSTIPATION for 15 Days, #30 TAB 1 Refill Docusate Sodium (Dok) 100 Mg Cap 100 MG PO BID for Mental Health for 15 Days, #30 CAP 1 Refill Lamotrigine (Lamictal) 25 Mg Tab 50 MG PO DAILY for Mental Health for 15 Days, #30 TAB 1 Refill Lamotrigine (Lamictal) 25 Mg Tab 75 MG PO HS for Mental Health for 15 Days, TAB 1 Refill Polyethylene Glycol 3350 Powder (Polyethylene Glycol 3350 Powder) 17 Gram Pow 17 GM PO DAILY for Health for 15 Days, PACKET 1 Refill Witch Stephanie/Glycerin (A.e.r. Witch Stephanie) 12.5 %-50 % Pad 1 APPLIC TOPICAL UNSCH PRN for HEMORRHOIDS for 15 Days, EA 1 Refill Continued Medications: Cholecalciferol (Gnp Vitamin D3 Extra Stre) 1,000 Unit Tab 1000 UNITS PO DAILY for Vitamin D supplement for 15 Days, TAB 1 Refill Discontinued Medications: Aripiprazole Maintena Dual Chamber Inj (Abilify Maintena Dual Chamber Inj) 400 Mg Inj 400 MG IM Q28D for Mental Health, #1 SYRINGE 0 Refills This dose of Abilify Maintena is due on 03/25/2017. Clonazepam (Klonopin) 1 Mg Tab 0.5 MG PO BID for Mental Health for 15 Days, #15 TAB 1 Refill Lamotrigine (Lamictal) 25 Mg Tab 50 MG PO BID for Mental Health for 15 Days, #60 TAB 1 Refill [Benztropine] () 1 MG TAB 1 MG PO BID for Side effect management for 15 Days, 1 Refill Discharge Time <= 30 minutes Mental Status Examination Appearance: Appropriate Consciousness: Alert Orientation: x4 Motor Activity: Other (No motor abnormalities noted) Speech: Unremarkable Language: Adequate Fund of Knowledge: Adequate Attention and Concentration: Adequate Memory: Unremarkable Mood: Appropriate Affect: Appropriate Thought Process & Associations: Intact, Logical, Goal directed, Linear Thought Content: Appropriate Hallucination Type: None Delusion Type: None Suicidal Ideation: No Suicidal Plan: No Suicidal Intention: No Homicidal Ideation: No Homicidal Plan: No Homicidal Intention: No Insight: Poor (Chronic condition) Judgment: Poor (Chronic condition) Discharge/Advance Care Plan Health Problems: (1) Acute exacerbation of chronic paranoid schizophrenia Goals to promote your health * To prevent worsening of your condition and complications * To maintain your health at the optimal level Directions to meet your goals Take your medications as prescribed Follow your dietary instruction Follow activity as directed Keep your appointments as scheduled Take your immunizations and boosters as scheduled If your symptoms worsen call your PCP, if no PCP go to Urgent Care Center or Emergency Room For 08/09 questions related to your inpatient stay or results of tests pending at discharge, please contact Dr. Pb Rae at Smoking is Dangerous to Your Health. Avoid second hand smoking Pb Rae MD Jun 09, 2017 12:27
== END 2017-06-09 13:45 | DRG 885 ==
LOC: NEPJ 17:37 → NEDA 05-22 11:49 → H260 05-22 13:40 → H4EA 06-02 17:32 → UNDODISIN 06-03 11:08 → H260 06-04 14:10
PROVIDERS: ADMIT Psychiatry & Neurology Psychiatry; ATTEND Psychiatry & Neurology Psychiatry
DX: F20.0 Paranoid schizophrenia (principal); F17.210 Nicotine dependence, cigarettes, uncomplicated; K59.00 Constipation, unspecified; K64.9 Unspecified hemorrhoids
CPT/HCPCS: 74018; 80048; 80053; 80061; 80175; 80307; 83036; 84443; 85025; 99285; Q0163

== ENCOUNTER 2017-06-03 11:27 | Day surgery (SDC) | payer MEDICARE, OTHER ==
[2017-06-03] MEDS ORDERED: LACTATED RINGER'S 1000 ML IV PRN (12:00)
[2017-06-03] MEDS ORDERED: LIDOCAINE HCL 1% PF 5 ML SYRINGE OTHER ONE (12:00)
[2017-06-03] MEDS ORDERED: CHLORHEXIDINE GLUCONATE 2 % 1 PACK (2 CLOTHS) TOPICAL PRN (12:00)
[2017-06-03] MEDS ORDERED: METOPROLOL TARTRATE 25 MG TAB PO PRN (12:00)
[2017-06-03] MEDS ORDERED: SODIUM CHLORID 0.9% 500 ML IV PRN (12:00)
[2017-06-03] MEDS ORDERED: PROPOFOL 200 MG/20 ML AMP IV ONE (12:00)
[2017-06-03] MEDS ORDERED: INSULIN HUMAN REGULAR 1,000 UNITS/10 ML VIAL SQ PRN (12:00)
[2017-06-03] MEDS ORDERED: POVIDONE IODINE 5% (ANTISEPSIS KIT) 4 APPLICATIONS EACH NARE PRN (12:00)
--- NOTE | 2017-06-03 14:40 | GIPROC ---
[facility] [address] [facility]. [facility], [address] FLEXIBLE SIGMOIDOSCOPY PROCEDURE REPORT EXAM DATE: 06/03/2017 PATIENT NAME: Pb Jain MR #: [id number] BIRTHDATE: 1980 ORDER #: [id number] ATTENDING: Bharati Lizarraag MD VELVET CUTTER: Ashu Gallo and Yuridia Uribe STATUS: outpatient INDICATIONS: The patient is a 36 yr old male here for a flexible sigmoidoscopy due to rectal bleeding PROCEDURE PERFORMED: Flexible Sigmoidoscopy, diagnostic MEDICATIONS: None and Per Anesthesia. ESTIMATED BLOOD LOSS: None CONSENT: The patient understands the risks and benefits of the procedure and understands that these risks include, but are not limited to: sedation, allergic reaction, infection, perforation and/or bleeding. Alternative means of evaluation and treatment include, among others: physical exam, x-rays, and/or surgical intervention. The patient elects to proceed with this endoscopic procedure. medical equipment was checked for proper function. Hand hygiene and appropriate measures for infection prevention was taken. After the risks, benefits and alternatives of the procedure were thoroughly explained, Informed consent was verified, confirmed and timeout was successfully executed by the treatment team. A digital rectal exam revealed external hemorrhoids and revealed a healed perianal fistula , no drainage or bleeding The Pentax [id number] endoscope was introduced through the anus and advanced to the descending colon. The prep was fair. The instrument was then slowly withdrawn as the colon was fully examined. COLON FINDINGS: There was no evidence of hemorrhoids internal. Retroflexed views revealed internal hemorrhoid The scope was then completely withdrawn from the patient and the procedure terminated. ADVERSE EVENTS: There were no complications. IMPRESSIONS: 1. There was no evidence of hemorrhoids internal 2. Retroflexed views revealed internal hemorrhoid 3. Revealed external hemorrhoids 4. Revealed a perianal fistula RECOMMENDATIONS: 1. Fiber rich diet 2. Cortisone cream if still problems consult colorectal fiber supplements RECALL: Return As need for Flexible Sigmoidoscopy Bharati Lizarraga MD eSigned: Bharati Lizarraga MD 06/03/2017 2:40 PM cc:
[2017-06-03 14:43] VITALS: BP 109/59; PULSE 79; RESP 24; O2SAT 95
[2017-06-03] MEDS ORDERED: HYDROCORTISONE 2.5% CREAM 30 GM TOPICAL SCH (21:00)
[2017-06-03] MEDS ORDERED: PSYLLIUM FIBER SF/GF 6 GM POWD PKT PO SCH (21:00)
== END 2017-06-03 14:50 ==
LOC: HSDC 11:27
PROVIDERS: ATTEND Internal Medicine Gastroenterology
DX: K64.8 Other hemorrhoids (principal); K64.4 Residual hemorrhoidal skin tags; K60.3 Anal fistula
CPT/HCPCS: 00812; 45330; J7120